=== PATIENT | female | born 1955 | race Caucasian/White ===

== ENCOUNTER 2023-02-15 09:46 | Outpatient (OUT) | payer OTHER, SELFPAY ==
--- NOTE | 2023-02-15 10:04 | XR_ITS ---
The [address] [address] Patient Name: LILI VERA MRN: [id number] date: 1955 Sex: F Assigned Patient Location: [facility] Current Patient Location: [facility] Accession/Order Number: [id number] Exam Date: 02/15/2023 10:00 Report Date: 02/15/2023 11:25 At the request of: ABDIRAHMAN NAVA Procedure: XR DEXA axial skeleton DEXA bone density study CLINICAL: 67 years Female. Evaluate bone mineral density. The bone density study was assessed by dual-energy x-ray absorptiometry. Areas examined in AP projection. The test results are expressed in T-Score, which is used for diagnosis for osteoporosis, and reflects the standard deviations from the mean peak bone mineral density in young adults. Additional information regarding the Z-Score reflects the standard deviations from the mean peak bone mineral density for age- and gender-matched subjects. Lumbar Spine (L1-L4): BMD (gm/cm2): 1.578 T-Score: 3.3 Left Hip (total): BMD (gm/cm2): 0.853 T-Score: -1.2 Left Hip (Neck): BMD (gm/cm2): 0.789 T-Score: -1.8 Right Hip (Total): BMD (gm/cm2): 0.831 T-Score: -1.4 Right Hip (Neck): BMD (gm/cm2): 0.741 T-Score: -2.1 XR/XR DEXA axial skeleton IMPRESSION: 1. Bone mineral density by WHO criteria: Osteopenia. Fracture risk increased. REFERENCE: In postmenopausal women and males 50 or over, comparison of the measured bone mineral density with the average value in young normal subjects (the T-Score) has been found to be useful in assessing fracture risk. Fracture risk approximately doubles for each 1.0 standard deviation (SD) that the individuals hip or spine bone mineral density is below the average value of young normal subjects. The World Health Organization (WHO) has provided the following definitions: 1. Normal: T-Score within one standard deviation of young adult mean value (T-Score at or above -1.0). 2. Osteopenia (low bone mass): T-Score more than one standard deviation below the young adult mean but less than 2.5 standard deviations below the young adult mean (T-Score between -1.0 and -2.5). 3. Osteoporosis: T-Score at or more than 2.5 standard deviations below the young adult mean (T-Score at or less than -2.5). 4. Severe Osteoporosis (established osteoporosis): T-Score more than 2.5 standard deviations below young adult and one or more fragility fracture (T-Score less than -2.5 plus fragility fractures). Electronically authenticated by: ANUPAM IBRAHIM Date: 02/15/2023 11:25
== END 2023-02-15 09:47 | disposition home or self-care (01) ==
LOC: MAMMO 09:47
PROVIDERS: PCP Family Medicine; Visit Provider Family Medicine
DX: Z13.820 Encounter for screening for osteoporosis (principal); Z90.722 Acquired absence of ovaries, bilateral; N95.9 Unspecified menopausal and perimenopausal disorder; Z90.710 Acquired absence of both cervix and uterus; M85.80 Other specified disorders of bone density and structure, unspecified site
CPT/HCPCS: 77080

== ENCOUNTER 2023-02-22 10:14 | Outpatient (OUT) | payer MEDICARE, SELFPAY ==
--- NOTE | 2023-02-22 10:19 | MM_ITS ---
Patient: LILI VERA Exam Date: 02/22/2023 : 1955 Gender:F Ordering : DR ABDIRAHMAN NAVA . Admission #: [id number] Family : Order #: [id number] CLICK HERE TO VIEW EXAM RADIOLOGY REPORT PROCEDURE: MM TOMOSYNTHESIS SCREENING BI COMPARISON: MG MAMM SCREEN 3D VICKEY CAD, 02/14/2022. MG MAMM SCREEN 3D [place]ICKEY CAD, 01/26/2021. MG MAMM SCREEN VICKEY W CAD, 01/21/2020. MG MAMM VICKEY SCRN W CAD DIG, 09/03/2013. INDICATIONS: Screening mammogram Z12.31 Calculator Name NCI Breast Cancer Risk Assessment Tool 5 Year Breast Cancer Risk 2.90% Lifetime Breast Cancer Risk 10.30% Personal Breast Cancer No Personal Ovarian Cancer No Treatments None Family Cancers Mother with breast cancer at age 71; Sister with pancreas cancer at age 66; Father with pancreas cancer at age 59. LOCATION: [facility] BREAST COMPOSITION: Heterogeneously dense,which may obscure small masses. FINDINGS: DIAGNOSTIC CATEGORY 1--NEGATIVE. RIGHT BREAST: No significant suspicious finding. No significant change has occurred. LEFT BREAST: No significant suspicious finding. No significant change has occurred. RECOMMENDATIONS: ROUTINE MAMMOGRAM AND CLINICAL EVALUATION IN 12 MONTHS. PLEASE NOTE: A NORMAL MAMMOGRAM DOES NOT EXCLUDE THE POSSIBILITY OF BREAST CANCER. A CLINICALLY SUSPICIOUS PALPABLE LUMP SHOULD BE BIOPSIED. Dictated by: Kennedy Valera M.D. on 02/22/2023 at 15:59 Approved by: Kennedy Valera M.D. on 02/22/2023 at 16:11
== END 2023-02-22 10:15 | disposition home or self-care (01) ==
LOC: MAMMO 10:15
PROVIDERS: PCP Family Medicine; Visit Provider Family Medicine
DX: Z12.31 Encounter for screening mammogram for malignant neoplasm of breast (principal); Z80.3 Family history of malignant neoplasm of breast; Z80.0 Family history of malignant neoplasm of digestive organs
CPT/HCPCS: 77063; 77067

== ENCOUNTER 2023-11-23 09:17 | Outpatient (OUT) | payer MEDICARE, SELFPAY ==
--- NOTE | 2023-11-23 09:20 | MM_ITS ---
Patient Name: LILI VERA MR#: [id number] : 1955 Exam Date: 11/23/2023 Ordering Doctor: DR ABDIRAHMAN NAVA . RADIOLOGY REPORT PROCEDURE: MM TOMOSYNTHESIS DIAGNOSTIC BI, 11/23/2023, 09:28 US BREAST LT LIMITED, 11/23/2023, 09:49 COMPARISON: MG MAMM SCREEN 3D VICKEY CAD, 02/14/2022. MM TOMOSYNTHESIS SCREENING BI, 02/22/2023. INDICATIONS: Mass Of Upper Outer Quadrant Of Left Breast Calculator Name NCI Breast Cancer Risk Assessment Tool 5 Year Breast Cancer Risk 3.00% Lifetime Breast Cancer Risk 9.90% Personal Breast Cancer No Personal Ovarian Cancer No Treatments None Family Cancers Mother with breast cancer at age 71; Sister with pancreas cancer at age 66; Father with pancreas cancer at age 59; Sister with bladder cancer at age 62; Sister with pancreas cancer at age ~65; Brother with pancreas cancer at age 69. LOCATION: The [facility] BREAST COMPOSITION: The breasts are heterogeneously dense,which may obscure small masses. FINDINGS: DIAGNOSTIC CATEGORY 2--BENIGN FINDING. NO CHANGE FROM COMPARISON. The breasts are stable in size and overall fibroglandular configuration. Scattered benign-appearing calcifications are present. Scattered benign-appearing lymph nodes are present. RIGHT BREAST: No significant suspicious finding. LEFT BREAST: No significant suspicious finding. [place] marker indicates a palpable mass upper-outer quadrant, mid posterior breast. No mammographic or ultrasound is demonstrated in this region. Further evaluation should be based on clinical and physical exam RECOMMENDATIONS: ROUTINE MAMMOGRAM AND CLINICAL EVALUATION IN 12 MONTHS. PLEASE NOTE: A NORMAL MAMMOGRAM DOES NOT EXCLUDE THE POSSIBILITY OF BREAST CANCER. A CLINICALLY SUSPICIOUS PALPABLE LUMP SHOULD BE BIOPSIED. Dictated by: Rosendo Middleton MD on 11/23/2023 at 10:51 Approved by: Rosendo Middleton MD on 11/23/2023 at 10:54
--- NOTE | 2023-11-23 09:23 | US_ITS ---
Patient Name: LILI VERA MR#: [id number] : 1955 Exam Date: 11/23/2023 Ordering Doctor: DR ABDIRAHMAN NAVA . RADIOLOGY REPORT PROCEDURE: MM TOMOSYNTHESIS DIAGNOSTIC BI, 11/23/2023, 09:28 US BREAST LT LIMITED, 11/23/2023, 09:49 COMPARISON: MG MAMM SCREEN 3D VICKEY CAD, 02/14/2022. MM TOMOSYNTHESIS SCREENING BI, 02/22/2023. INDICATIONS: Mass Of Upper Outer Quadrant Of Left Breast Calculator Name NCI Breast Cancer Risk Assessment Tool 5 Year Breast Cancer Risk 3.00% Lifetime Breast Cancer Risk 9.90% Personal Breast Cancer No Personal Ovarian Cancer No Treatments None Family Cancers Mother with breast cancer at age 71; Sister with pancreas cancer at age 66; Father with pancreas cancer at age 59; Sister with bladder cancer at age 62; Sister with pancreas cancer at age ~65; Brother with pancreas cancer at age 69. LOCATION: The [facility] BREAST COMPOSITION: The breasts are heterogeneously dense,which may obscure small masses. FINDINGS: DIAGNOSTIC CATEGORY 2--BENIGN FINDING. NO CHANGE FROM COMPARISON. The breasts are stable in size and overall fibroglandular configuration. Scattered benign-appearing calcifications are present. Scattered benign-appearing lymph nodes are present. RIGHT BREAST: No significant suspicious finding. LEFT BREAST: No significant suspicious finding. [place] marker indicates a palpable mass upper-outer quadrant, mid posterior breast. No mammographic or ultrasound is demonstrated in this region. Further evaluation should be based on clinical and physical exam RECOMMENDATIONS: ROUTINE MAMMOGRAM AND CLINICAL EVALUATION IN 12 MONTHS. PLEASE NOTE: A NORMAL MAMMOGRAM DOES NOT EXCLUDE THE POSSIBILITY OF BREAST CANCER. A CLINICALLY SUSPICIOUS PALPABLE LUMP SHOULD BE BIOPSIED. Dictated by: Rosendo Middleton MD on 11/23/2023 at 10:51 Approved by: Rosendo Middleton MD on 11/23/2023 at 10:54
== END 2023-11-23 09:18 | disposition home or self-care (01) ==
LOC: MAMMO 09:17
PROVIDERS: PCP Family Medicine; Visit Provider Family Medicine
DX: N63.21 Unspecified lump in the left breast, upper outer quadrant (principal); Z80.3 Family history of malignant neoplasm of breast; Z80.52 Family history of malignant neoplasm of bladder; Z80.8 Family history of malignant neoplasm of other organs or systems
CPT/HCPCS: 76642; 77066; G0279

== ENCOUNTER 2024-04-15 13:46 | Outpatient (OUT) | payer MEDICARE, SELFPAY ==
--- NOTE | 2024-04-15 | ECG_ITS ---
The 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
--- OUTSIDE RECORDS SUMMARY | 2024-04-15 13:56 | XMS_ITS | CCD ---
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 Name Role Phone ELIJAH ., DR GARY Primary Care Unavailable HEMEYER ., DR GARY Admitting Unavailable HEMEYER ., DR GARY Attending Unavailable HEMEYER ., DR GARY Consulting Unavailable HEMEYER ., DR GARY Admitting Unavailable HEMEYER ., DR GARY Attending Unavailable HEMEYER ., DR GARY Consulting Unavailable HEMEYER ., DR GARY Primary Care Unavailable ZIEBER, DR KENNEDY Mcginnis Consulting Unavailable Unavailable Primary Care Provider UnavailAMIE Mae Attending Unavailable HEMEYER, EDTRISHA J Attending Unavailable HEMEYER, EDWARD J Attending Unavailable HEMEYER, EDWARD J Attending Unavailable HEMEYER, EDWARD J Referring Unavailable HEMEYER, EDWARD J Attending Unavailable HEMEYER, EDWARD J Attending Unavailable HEMEYER, EDWARD J Attending Unavailable HEMEYER, EDWARD J Attending Unavailable Allergies Allergy Classification Reported Allergen(s) Allergy Type Date of Onset Reaction(s) Facility (1 source) ALLERGIES NOT ON FILE; Translations: [ALLERGIES NOT ON FILE] Propensity to adverse reactions (disorder) [facility] Problems Active Problems Problem Classification Problem Date Documented Date Episodic/Chronic Disorders of lipid metabolism (1 source) Pure hypercholesterolemia, unspecified; Translations: [PURE HYPERCHOLESTEROLEMIA UNSPEC] Onset: 3 Chronic Other liver diseases (1 source) Abnormal levels of other serum enzymes; Translations: [ABNORMAL LEVELS OTHER SERUM ENZYMES] Onset: 3 Episodic Other screening for suspected conditions (not mental disorders or infectious disease) (6 sources) Encounter for screening for lipoid disorders; Translations: [Encounter for screening for diabetes mellitus] Onset: 2 Episodic Residual codes; unclassified (1 source) Family history of malignant neoplasm of pancreas; Translations: [Family history of malignant neoplasm of digestive organs] 11-04-2023 Episodic Past or Other Problems Problem Classification Problem Date Documented Da te Episodic/Chronic Residual codes; unclassified (1 source) Family history of malignant neoplasm of breast; Translations: [FAMILY HX MALIG NEOPLASM OF BREAST] Onset: 02-17-2022 Episodic Residual codes; unclassified (1 source) Family history of malignant neoplasm of other organs or systems; Translations: [FAM HX MALIG NEOPLASM OTH ORGN/SYS] Onset: 02-17-2022 Episodic Results Test Name Value Interpretation Reference Range Facility CT ABDOMEN W IV CONTRASTon 0 08-24-2023 CT ABDOMEN W IV CONTRAST CT of the abdomen with intravenous contrast medium History: Pancreatic carcinoma screening, positive family history Technical Factors: CT imaging of the abdomen were obtained and formatted as 5 mm contiguous axial images from the domes of the diaphragm to the pelvic brim. Sagittal and coronal reconstructions were also obtained. Oral contrast medium: Barium sulfate, 400 mL. Intravenous contrast medium: Isovue-300, 100 mL. Comparison: None. Findings: Lower chest: Lung bases are clear. Cardiac size normal. No pericardial effusion. No coronary artery calcification. Liver: Normal in size, shape, and attenuation. Bile Ducts: Trace intrahepatic ductal dilatation. No extrahepatic ductal dilatation. Gallbladder: Surgically absent. Pancreas: Normal without masses, cysts, ductal dilatation or calcification. Spleen: Normal in size without masses or calcifications. No splenules. Kidneys: Normal in size and enhancement. No hydronephrosis, masses, or stones. Adrenals: Normal. Small bowel: Normal in caliber. Appendix: Normal. Colon: Normal in caliber. Peritoneum: No ascites, free air, or fluid collections. Vessels: Aorta normal in course and caliber. Portal vein, splenic vein, superior mesenteric vein are patent. Lymph nodes: Retroperitoneal: No enlarged retroperitoneal lymph nodes. Mesenteric: No enlarged mesenteric lymph nodes. Ureters: Normal in course and caliber. No calcifications. Abdominal Wall: No hernia identified. No diastasis of rectus musculature. No edema or masses. Bones: No bone lesions. Diffuse disc space narrowing L3-4, and L4-5. No post operative changes. IMPRESSION: Trace intrahepatic ductal dilatation in postcholecystectomy patient. Negative pancreas. All CT scans at this facility use dose modulation, iterative reconstruction, and/or weight based dosing when appropriate to reduce radiation dose to as low as reasonably achievable. ELECTRONICALLY SIGNED BY: Mickey Saxena MD Normal Not Available LIPID PROFILEon 10-12-2022 CHOL-HDL RATIO NORM SEE BELOW Normal [facility] Comment on above: Result Comment: 3.3 - 4.4 LOW RISK 4.4 - 7.1 AVERAGE RISK 7.1 - 11.0 MODERATE RISK >11.0 HIGH RISK Performed By: #### C MP, LIPID #### [facility] [address] [address] [address] Bhargavi Vogel Cholesterol [Mass/Vol] 229 mg/dL Critically high <=200 [facility] Comment on above: Performed By: #### C MP, LIPID #### [facility] [address] [address] [address] Bhargavi Vogel Cholesterol in HDL [Mass/Vol] 101 mg/dL Critically high 40-60 [facility] Comment on above: Performed By: #### C MP, LIPID #### [facility] [address] [address] [address] Bhargavi Vogel Cholesterol in LDL [Mass/Vol] 112.4 mg/dL Normal [facility] Comment on above: Performed By: #### C MP, LIPID #### [facility] [address] [address] [address] Bhargavi Vogel Cholesterol.total /Cholesterol in HDL [Mass ratio] 2.3 {ratio} Normal [facility] Comment on above: Performed By: #### C MP, LIPID #### [facility] [address] [address] [address] Bhargavi Vogel HDL NORMAL > or = 60 mg/dl - LO W CARDIOVASCULAR RISK <40 mg/dl - HIGH CARDIOVASCULAR RISK Normal [facility] Comment on above: Performed By: #### C MP, LIPID #### [facility] [address] [address] [address] Bhargavi Vogel LDL CALC NORMAL SEE BELOW Normal [facility] Comment on above: Result Comment: <100 mg/dl OPTIMAL 100 - 129 mg/dl NEAR OR ABOVE OPTIMAL 130 - 159 mg/dl BORDERLINE HIGH 160 - 189 mg/dl HIGH >190 mg/dl VERY HIGH Performed By: #### C MP, LIPID #### [facility] [address] [address] [address] Bhargavi Vogel Triglyceride [Mass/Vol] 78 mg/dL Normal <=150 [facility] Comment on above: Performed By: #### C MP, LIPID #### [facility] [address] [address] [address] Bhargavi Vogel VLDL CALC 15.6 mg/dL Normal [facility] Comment on above: Performed By: #### C MP, LIPID #### [facility] [address] [address] [address] Bhargavi Vogel PROF 14(COMP METB)on 023 Albumin [Mass/Vol] 3.8 g/dL Normal 3.4-5.0 [facility] Comment on above: Performed By: #### C MP, LIPID #### [facility] [address] [place] [address] Dr. Bhargavi Vogel Albumin/Globulin [Mass ratio] 1.3 {ratio} Normal [facility] Comment on above: Performed By: #### C MP, LIPID #### [facility] [address] [place] [address] Dr. Bhargavi Vogel ALP [Catalytic activity/Vol] 33 U/L Critically low 46-116 [facility] Comment on above: Performed By: #### C MP, LIPID #### [facility] [address] [address] [address] Bhargavi Vogel ALT [Catalytic activity/Vol] 26 U/L Normal 14-59 [facility] Comment on above: Performed By: #### C MP, LIPID #### [facility] [address] [address] [address] Bhargavi Vogel Anion gap [Moles/Vol] 10.7 mmol/L Normal [facility] Comment on above: Performed By: #### C MP, LIPID #### [facility] [address] [address] [address] Bhargavi Vogel AST [Catalytic activity/Vol] 21 U/L Normal 15-37 [facility] Comment on above: Performed By: #### C MP, LIPID #### [facility] [address] [place] [address] Dr. Bhargavi Vogel Bilirubin [Mass/Vol] 0.6 mg/dL Normal 0.2-1.0 [facility] Comment on above: Performed By: #### C MP, LIPID #### [facility] [address] [address] [address] Bhargavi Vogel Calcium [Mass/Vol] 9.2 mg/dL Normal 8.5-10.1 [facility] Comment on above: Performed By: #### C MP, LIPID #### [facility] [address] [address] [address] Bhargavi Vogel Chloride [Moles/Vol] 106 mmol/L Normal 98-107 [facility] Comment on above: Performed By: #### C MP, LIPID #### [facility] [address] [address] [address] Bhargavi Vogel CO2 [Moles/Vol] 28.6 mmol/L Normal 21.0-32.0 [facility] Comment on above: Performed By: #### C MP, LIPID #### [facility] [address] [address] [address] Bhargavi Vogel Creatinine [Mass/Vol] 0.75 mg/dL Normal 0.55-1.02 [facility] Comment on above: Performed By: #### C MP, LIPID #### [facility] [address] [address] [address] Bhargavi Vogel EGFR-AF CAMEROONIAN >60 Normal >=60 [facility] Comment on above: Performed By: #### C MP, LIPID #### [facility] [address] [address] [address] Bhargavi Vogel EGFR-NON AF CAMEROONIAN >60 Normal >=60 [facility] Comment on above: Performed By: #### C MP, LIPID #### [facility] [address] [address] [address] Bhargavi Vogel Globulin (S) [Mass/Vol] 3.0 g/dL Normal [facility] Comment on above: Performed By: #### C MP, LIPID #### [facility] [address] [address] [address] Bhargavi Vogel Glucose [Mass/Vol] 101 mg/dL Normal 74-106 [facility] Comment on above: Performed By: #### C MP, LIPID #### [facility] [address] [address] [address] Bhargavi Vogel Potassium [Moles/Vol] 4.3 mmol/L Normal 3.5-5.1 [facility] Comment on above: Performed By: #### C MP, LIPID #### [facility] [address] [address] [address] Bhargavi Vogel Protein [Mass/Vol] 6.8 g/dL Normal 6.4-8.2 [facility] Comment on above: Performed By: #### C MP, LIPID #### [facility] [address] [address] [address] Bhargavi Vogel Sodium [Moles/Vol] 141 mmol/L Normal 136-145 [facility] Comment on above: Performed By: #### C MP, LIPID #### [facility] [address] [address] [address] Bhargavi Vogel Urea nitrogen [Mass/Vol] 15.0 mg/dL Normal 7.0-18.0 [facility] Comment on above: Performed By: #### C MP, LIPID #### [facility] [address] [address] [address] Bhargavi Vogel Urea nitrogen/Creatini ne [Mass ratio] 20.0 mg/mg Normal [facility] Comment on above: Performed By: #### C MP, LIPID #### [facility] [address] [address] [address] Bhargavi Vogel MG MAMM SCREEN 3D VICKEY CADon 02-14-2022 MG MAMM SCREEN 3D VICKEY CAD Patient: LILI VERA Exam Date: 02/14/2022 : 1955 Gender:F Ordering : DR ABDIRAHMAN NAVA . Admission #: [id number] Family : Order #: [id number] CLICK HERE TO VIEW EXAM RADIOLOGY REPORT PROCEDURE: MAMMOGRAM SCREENING 3D BILATERAL CAD COMPARISON: MG MAMM SCREEN 3D VICKEY CAD, 01/26/2021. MG MAMM SCREEN VICKEY W CAD, 01/21/2020. INDICATIONS: Screening mammography Calculator Name NCI Breast Cancer Risk Assessment Tool 5 Year Breast Cancer Risk 2.90% Lifetime Breast Cancer Risk 10.70% Personal Breast Cancer No Personal Ovarian Cancer No Treatments None Family Cancers Mother with breast cancer at age 71; Sister with pancreas cancer at age 66; Father with pancreas cancer at age 59. LOCATION: [facility] BREAST COMPOSITION: Heterogeneously dense,which may obscure small masses. FINDINGS: DIAGNOSTIC CATEGORY 1--NEGATIVE. RIGHT BREAST: No significant suspicious finding. No significant change has occurred. LEFT BREAST: No significant suspicious finding. No significant change has occurred. RECOMMENDATIONS: ROUTINE MAMMOGRAM AND CLINICAL EVALUATION IN 12 MONTHS. PLEASE NOTE: A NORMAL MAMMOGRAM DOES NOT EXCLUDE THE POSSIBILITY OF BREAST CANCER. A CLINICALLY SUSPICIOUS PALPABLE LUMP SHOULD BE BIOPSIED. Dictated by: Kennedy Valera M.D. on 02/14/2022 at 16:01 Approved by: Kennedy Valera M.D. on 02/14/2022 at 16:06 Normal [facility] Encounters Encounter Date Encounter Type Care Provider Facility Start: 03-13-2024 End: 03-13-2024 ambulatory ABDIRAHMAN NAVA Not Available Start: 02-26-2024 End: 02-26-2024 ambulatory ABDIRAHMAN NAVA Not Available Start: 12-24-2023 End: 12-24-2023 ambulatory ABDIRAHMAN NAVA Not Available Start: 11-13-2023 End: 11-13-2023 ambulatory ABDIRAHMAN NAVA Not Available Start: 11-02-2023 End: 11-02-2023 Office outpatient new 45 minutes Amie Archer PA-C Work Phone: [facility] Comment on above: Family history of pa ncreatic cancer (Primary Dx) Start: 11-02-2023 End: 11-02-2023 ambulatory AMIE Cooper [facility] Start: 08-24-2023 End: 08-24-2023 ambulatory ABDIRAHMAN NAVA Not Available Start: 08-13-2023 End: 08-13-2023 ambulatory ABDIRAHMAN NAVA Not Available Start: 08-09-2023 End: 08-09-2023 ambulatory ABDIRAHMAN NAVA Not Available Start: 08-02-2023 End: 08-02-2023 ambulatory ABDIRAHMAN NAVA Not Available Start: 11-02-2022 Encounter for genera l adult medical examination without abnormal findings DR ABDIRAHMAN NAVA . [facility] Start: 10-12-2022 End: 10-13-[address] ABDIRAHMAN NAVA . Facility:[facility] Start: 10-12-2022 End: 10-13-2022 Encounter for general adult medical examination without abnormal findings DR ABDIRAHMAN NAVA . Facility:[facility] Start: 02-14-2022 End: 02-15-[address] ABDIRAHMAN NAVA . Facility:[facility] Procedures Date Procedure Procedure Detail Performing Clinician Start: 02-14-2022 Mammography Amie haro PA-C Work Phone: Plan of Treatment Date Care Activity Detail Author Start: 03-23-2024 Influenza vaccination Influenza Vaccine (Season Ended) [facility] Start: 03-23-2023 COVID-19 Vaccine ( season) COVID-19 Vaccine ( season) [facility] Start: 02-14-2023 Screening for malignant neoplasm of breast Mammogram [facility] Start: 2021 Pneumococcal Vaccine: 65+ Years (1 of 1 - PCV) Pneumococcal Vaccine: 65+ Years (1 of 1 - PCV) [facility] Start: 2006 Zoster Vaccines (1 of 2) Zoster Vaccines (1 of 2) [facility] Start: 1978 DTaP/Tdap/Td Vaccines (1 - Tdap) DTaP/Tdap/Td Vaccines (1 - Tdap) [facility] Start: 1974 Hepatitis C screening Hepatitis C Screening [facility] Start: 1955 Lipid panel Lipid Panel [facility] Start: 1955 Medicare Annual Wellness Visit Medicare Annual Wellness Visit (AWV) [facility] Start: 1955 Screening for malignant neoplasm of colon [facility] Start: 1955 Screening for osteoporosis Bone Density Scan [facility] Payers Date Payer Category Payer Unknown AARP AARP [id number] 2023-Present [address] [place] [address] [id number] 2023 Medicare [id number] 2023 Unknown [id number] 2023 Medicare MEDICARE MEDICAR E PART A AND B [id number] 2023-Present [address] [place] [address] [id number] 2023 Medicare [id number] 1959 Unknown [id number] 1959 Unknown [id number] 1955 Unknown [id number] 1955 Unknown [id number] 1955 Unknown [id number] 1955 Unknown [id number] 1955 Unknown [id number] 1955 Unknown [id number] 1955 Unknown [id number] 1955 Unknown [id number] 1955 Unknown [id number] 1955 Unknown [id number] 1955 Unknown [id number] Social History Date Type Detail Facility Tobacco smoking stat [facility] Tobacco smoking consumption unknown [facility] Work Phone: Start: 1955 Sex assigned at Female [facility] Start: 10-30-2023 Gender identity Identifies as female gender (finding) [facility] Work Phone: Start: 10-30-2023 Sexual orientation Heterosexual (finding) [facility] Work Phone: Start: 10-23-2023 End: 11-02-2023 Exposure to SARS-CoV-2 (event) Not sure [facility] History of Present illness Narrative 11-02-2023 Amie Archer PA-C - 11/02/2023 2:00 PM EDT Note Date & Type Note Facility 11-02-2023 History of Present illness Narrative A virtual visit (audio and visual connection) between the patient (at the originating site) and the provider (at the distant site) was utilized to provide this telehealth service. Verbal consent was requested and obtained from the patient immediately prior to the telehealth visit. Subjective Ms. Vera is a 68-year-old female who is self-referred to discuss pancreatic cancer surveillance. Her father and three of her siblings have from pancreatic cancer. She recalls that one of her sisters underwent genetic testing and no mutations were found. She attributes her strong family history of pancreatic cancer to sprays used on their family [place]. She lost her brother, Michael, in August to pancreatic cancer. This loss sparked her interest in pancreatic cancer surveillance. She discussed surveillance with her primary care physician who ordered a CT A/P. The pancreas was normal. She denies a personal history of acute pancreatitis. She denies chronic abdominal pain, early satiety, poor appetite, unintentional weight loss or jaundice. She is not diabetic. She considers herself to be very healthy. Medical history: Anxiety. Surgical history: Total hysterectomy, cholecystectomy, umbilical hernia repair. Family history: Her father of pancreatic cancer at age 59; he lived 6 weeks after his diagnosis; did not tolerate chemotherapy. She had 8 siblings, 4 of which are still living. She has had 3 siblings from pancreatic cancer: brother (Michael) in August, sister (Fabiana Santillan) was diagnosed at age 71 and in 2022, sister (Teresa) was diagnosed at age 67, underwent a Whipple procedure and in 2016. Mother was diagnosed with breast cancer at age 65 but lived to the age of 92. Oldest brother from AIDS at age 51 in 1994. Social history: Former smoker, quit 25 years ago. Occasional alcohol use. No illicits. Lives in [place]. x 43 years. Email: [email or web address]. Objective There were no vitals taken for this visit. Physical Exam A physical exam was not conducted as this was a phone or virtual visit. The patient is in no acute distress. Assessment/Plan Ms. Vera is a 68-year-old female who is self-referred to discuss pancreatic cancer surveillance. PLAN: She has a strong family history of pancreatic cancer. Her family history qualifies her for our CAPS5 study and familial pancreatic cancer surveillance program. I have referred her to Dr. Mando Belle to enroll. We had a long discussion regarding surveillance options (MRI/MRCP, EUS, etc.). She does not believe she will ever be able to tolerate a MRI/MRCP due to significant claustrophobia. She also (understandably) expresses significant anxiety related to her family history and comments that she would feel more comfortable with a shorter surveillance interval (as compared to annually). I will let her know if I hear of any new surveillance tests developed or offered in the future. I did briefly discuss the Galleri test with her though likely cost-prohibitive. Finally, I did request her CT images for review. Amie Archer PA-C documented in this encounter [facility] Work Phone: Evaluation note Note Date & Type Note Facility Evaluation note Diagnosis Family history of pancreatic cancer- Primary Family history of malignant neoplasm of gastrointestinal tract documented in this encounter [facility] Work Phone: Summary Purpose Family History No Family History Records FoundNo Family History Records FoundNo Family History Records Found Advance Directives No Advanced Directives Records FoundNo Advanced Directives Records FoundNo Advanced Directives Records Found Additional Source Comments INFORMATION SOURCE (unrecogn ized section and content) DATE CREATED AUTHOR 11/03/2022 [facility] DATE CREATED AUTHOR AUTHOR'S ORGANIZ ATION 11/04/2023 [facility] DATE CREATED AUTHOR AUTHOR'S ORGANIZ ATION 03/15/2024 [facility] FOR RECORDS PERTAINING TO PATIENTS WHO ARE OR HAVE BEEN ENROLLED IN A CHEMICAL DEPENDENCY/SUBSTANCEABUSE PROGRAM, SOME INFORMATION MAY BE OMITTED. This clinical summary was aggregated from multiple sources. Caution should be exercised in using it in the provision of clinical care. This summary normalizes information from multiple sources, and as a consequence, information in this document may materially change the coding, format and clinical context of patient data. In addition, data may be omitted in some cases. CLINICAL DECISIONS SHOULD BE BASED ON THE PRIMARY CLINICAL RECORDS. [employer] provides no warranty or guarantee of the accuracy or completeness of information in this document.
== END 2024-04-15 13:47 | disposition home or self-care (01) ==
PROVIDERS: PCP Family Medicine; Visit Provider Family Medicine
DX: Z87.898 Personal history of other specified conditions (principal)
CPT/HCPCS: 93005

== ENCOUNTER 2024-08-19 07:44 | Outpatient (OUT) | payer MEDICARE, SELFPAY ==
--- OUTSIDE RECORDS SUMMARY | 2024-08-19 07:48 | XMS_ITS | CCD ---
Author Organization [facility] Care Team Providers Care Dust Sampler Name Role Phone ELIJAH ., DR GARY Primary Care Unavailable HEMEYER ., DR GARY Admitting Unavailable HEMEYER ., DR GARY Attending Unavailable HEMEYER ., DR GARY Consulting Unavailable HEMEYER ., DR GARY Admitting Unavailable HEMEYER ., DR GARY Attending Unavailable HEMEYER ., DR GARY Consulting Unavailable HEMEYER ., DR GARY Primary Care Unavailable ZIEBER, DR KENNEDY Mcginnis Consulting Unavailable Unavailable Primary Care Provider UnavailLIN Mae Attending Unavailable Jack Nava MD Primary Care Provider [phone] Jack Nava MD Primary Care Provider Jack Nava MD Primary Care Provider JACK NAVA Attending Unavailable JACK NAVA Referring Unavailable JACK NAVA Attending Unavailable JACK NAVA Attending Unavailable JACK NAVA Attending Unavailable JACK NAVA Attending Unavailable JACK NAVA Attending Unavailable Allergies Allergy Classification Reported Allergen(s) Allergy Type Date of Onset Reaction(s) Facility (1 source) ALLERGIES NOT ON FILE; Translations: [ALLERGIES NOT ON FILE] Propensity to adverse reactions (disorder) [facility] (12 sources) Acetaminophen Drug Allergy 3 [facility] (12 sources) Codeine Drug Allergy 3 [facility] (12 sources) Ketoprofen Drug Allergy 3 [facility] Medications Current Medications Medication Drug Class(es) Dates Sig (Normalized) Sig (Original) ALPRAZolam 0.25 mg oral tablet (13 sources) Benzodiazepine Start: 02-26-2024 End: 02-26-2024 take 1 tablet by mouth three times daily as needed for anxiety ALPRAZolam (Xanax) 0.25 MG tablet Indications: Generalized anxiety disorder (CMS/HCC) Take 1 tablet (0.25 mg) by mouth 3 (three) times a day as needed for anxiety for up to 10 days 30 tablet 02/26/2024 Active colestipol hydrochloride 1000 mg oral tablet (17 sources) Bile Acid Sequestrant Start: 02-05-2024 End: 11-12-2024 take 1-2 tablets by mouth three times daily as needed for diarrhea colestipol (Colestid) 1 g tablet Indications: Irritable bowel syndrome with both constipation and diarrhea Take 1-2 tablets (1-2 g) by mouth 3 (three) times a day as needed (diarrhea) 100 tablet 1 08/14/2024 11/12/2024 Active cyclobenzaprine hydrochloride 5 mg oral tablet (4 sources) Muscle Relaxant Start: 03-13-2024 End: 03-23-2024 take 1 tablet by mouth in the morning, then take 1 tablet by mouth in the evening, then take 1 tablet by mouth at bedtime cyclobenzaprine (Flexeril) 5 MG tablet Indications: Lumbar strain, initial encounter Take 1 tablet (5 mg) by mouth in the morning and 1 tablet (5 mg) in the evening and 1 tablet (5 mg) before bedtime. Do all this for 10 days. 30 tablet 03/13/2024 03/23/2024 Active estradiol 1 mg oral tablet (16 sources) Estrogen Start: 02-05-2024 End: 02-10-2025 take 1 tablet by mouth once daily estradiol (Estrace) 1 MG tablet Indications: Perimenopausal disorder Take 1 tablet (1 mg) by mouth Daily 90 tablet 1 08/14/2024 02/10/2025 Active mometasone furoate 0.001 mg/mg topical ointment (2 sources) Corticosteroid Start: 08-14-2024 End: 11-12-2024 mometasone (Elocon) 0.1 % ointment Indications: Perioral dermatitis Apply topically Daily As needed for inflamed lips 15 g 2 08/14/2024 11/12/2024 Active nabumetone 750 mg oral tablet (4 sources) Nonsteroidal Anti-inflammatory Drug Start: 03-13-2024 End: 03-23-2024 take 1 tablet by mouth in the morning nabumetone (Relafen) 750 MG tablet Indications: Lumbar strain, initial encounter Take 1 tablet (750 mg) by mouth in the morning and 1 tablet (750 mg) before bedtime. Do all this for 10 days. 20 tablet 03/13/2024 03/23/2024 Active omeprazole 20 mg delayed release oral capsule (16 sources) Proton Pump Inhibitor Start: 08-02-2023 End: 08-14-2025 take 1 capsule by mouth before mealtime omeprazole (PriLOSEC) [address] capsule Indications: Gastroesophageal reflux disease without esophagitis Take 1 capsule (20 mg) by mouth in the morning. Take before meals. Do not crush or chew.. 90 capsule 3 08/14/2024 08/14/2025 Active Problems Active Problems Problem Classification Problem Date Documented Date Episodic/Chronic Anxiety disorders (16 sources) Generalized anxiety disorder; Translations: [Generalized anxiety disorder] Onset: 02-16-2002-15-2023 Chronic Disorders of lipid metabolism (1 source) Pure hypercholesterolemia, unspecified; Translations: [PURE HYPERCHOLESTEROLEMIA UNSPEC] Onset: 11-03-19 Chronic Esophageal disorders (18 sources) Gastroesophageal reflux disease without esophagitis; Translations: [Gastro-esophageal reflux disease without esophagitis] Onset: 08-02-1904-30-2024 Chronic Menopausal disorders (16 sources) Perimenopausal disorder; Translations: [Unspecified menopausal and perimenopausal disorder] Onset: 02-16-2002-15-2023 Chronic Nonspecific chest pain (2 sources) Chest pain; Translations: [Chest pain, unspecified] 04-30-2024 Episodic Other gastrointestinal disorders (17 sources) Irritable bowel syndrome; Translations: [Irritable bowel syndrome without diarrhea] Onset: 02-16-20 23 02-15-2023 Chronic Other inflammatory condition of skin (2 sources) Perioral dermatitis; Translations: [Perioral dermatitis] 08-14-2024 Chronic Other liver diseases (1 source) Abnormal levels of other serum enzymes; Translations: [ABNORMAL LEVELS OTHER SERUM ENZYMES] Onset: 11-03-19 Episodic Other screening for suspected conditions (not mental disorders or infectious disease) (10 sources) Encounter for screening for lipoid disorders; Translations: [Encounter for screening for diabetes mellitus] Onset: 02-15-20 Episodic Residual codes; unclassified (14 sources) At risk of malignancy; Translations: [Other specified personal risk factors, not elsewhere classified] Onset: 08-02-1908-02-2023 Episodic Spondylosis; intervertebral disc disorders; other back problems (12 sources) Degeneration of cervical intervertebral disc; Translations: [Other cervical disc degeneration, unspecified cervical region] Onset: 02-16-2002-15-2023 Chronic Past or Other Problems Problem Classification Problem Date Documented Da te Episodic/Chronic Abdominal pain (2 sources) Flank pain; Translations: [Unspecified abdominal pain] 03-13-2024 Episodic Residual codes; unclassified (1 source) Family history of malignant neoplasm of breast; Translations: [FAMILY HX MALIG NEOPLASM OF BREAST] Onset: 02-17-2022 Episodic Residual codes; unclassified (1 source) Family history of malignant neoplasm of other organs or systems; Translations: [FAM HX MALIG NEOPLASM OTH ORGN/SYS] Onset: 02-17-2022 Episodic Residual codes; unclassified (13 sources) Family history of malignant neoplasm of pancreas; Translations: [Family history of malignant neoplasm of digestive organs] Onset: 08-02-2023 11-04-2023 Episodic Residual codes; unclassified (14 sources) Acquired absence of cervix and uterus; Translations: [Acquired absence of both cervix and uterus] Onset: 02-15-2023 02-15-2023 Episodic Residual codes; unclassified (14 sources) Bilateral acquired absence of ovary; Translations: [Acquired absence of ovaries, bilateral] Onset: 02-15-2023 02-15-2023 Episodic Residual codes; unclassified (4 sources) Body mass index 20-24 - normal; Translations: [Body mass index (BMI) 22.0-22.9, adult] 02-20-2024 Episodic Sprains and strains (2 sources) Low back strain; Translations: [Strain of muscle, fascia and tendon of lower back, initial encounter] 03-13-2024 Episodic Results Test Name Value Interpretation Reference Range Facility Urinalysis macro (dipstick) panel (U)on 03-13-2024 Bilirubin, UA Negative Negative - 4(70) +++ mg/dL [facility] Blood, UA Negative Negative - 50 Se/mcL [facility] Clarity, UA Clear [facility] Color, UA Colorless [facility] Glucose, UA Negative Negative - 2000(110) ++++ mg/dL [facility] Interpretation and review of laboratory results Normal [facility] Ketones, UA Negative Negative - 160(16) ++++ mg/dL [facility] Leukocytes, UA Negative Negative - 500+++ Tate/mcL [facility] Nitrite, UA Negative Negative - Positive [facility] pH, UA 6.0 5 - 9 [facility] Protein, UA Negative Negative - 2000(20) ++++ mg/dL [facility] Spec Grav, UA 1.015 1 - 1.03 [facility] Urobilinogen, UA 0.2 0.2 - 12 mg/dL [facility] CT ABDOMEN W IV CONTRASTon 0 08-24-2023 [...] 10-12-2022 CHOL-HDL RATIO NORM SEE BELOW Normal [facility] Comment on above: Result Comment: 3.3 - 4.4 LOW RISK 4.4 - 7.1 AVERAGE RISK 7.1 - 11.0 MODERATE RISK >11.0 HIGH RISK Performed By: #### C MP, LIPID #### [facility] [address] [address] [address] Bhargavi Vogel Cholesterol [Mass/Vol] 229 mg/dL Critically high <=200 [facility] Comment on above: Performed By: #### C MP, LIPID #### [facility] [address] [address] [address] Bhargavi Vogel Cholesterol in HDL [Mass/Vol] 101 mg/dL Critically high 40-60 [facility] Comment on above: Performed By: #### C MP, LIPID #### [facility] [address] [address] [address] Bhargavi Vogel Cholesterol in LDL [Mass/Vol] 112.4 mg/dL Normal [facility] Comment on above: Performed By: #### C MP, LIPID #### [facility] [address] [address] [address] Bhargavi Vogel Cholesterol.total/C holesterol in HDL [Mass ratio] 2.3 {ratio} Normal [facility] Comment on above: Performed By: #### C MP, LIPID #### [facility] [address] [address] [address] Bhargavi Vogel HDL NORMAL > or = 60 mg/dl - LO W CARDIOVASCULAR RISK <40 mg/dl - HIGH CARDIOVASCULAR RISK Normal [facility] Comment on above: Performed By: #### C MP, LIPID #### [facility] [address] [address] [address] Bhargavi Vogel LDL CALC NORMAL SEE BELOW Normal [facility] Comment on above: Result Comment: <100 mg/dl OPTIMAL 100 - 129 mg/dl NEAR OR ABOVE OPTIMAL 130 - 159 mg/dl BORDERLINE HIGH 160 - 189 mg/dl HIGH >190 mg/dl VERY HIGH Performed By: #### C MP, LIPID #### [facility] [address] [address] [address] Bhargavi Vogel Triglyceride [Mass/Vol] 78 mg/dL Normal <=150 [facility] Comment on above: Performed By: #### C MP, LIPID #### [facility] [address] [address] [address] Bhargavi Vogel VLDL CALC 15.6 mg/dL Normal [facility] Comment on above: Performed By: #### C MP, LIPID #### [facility] [address] [address] [address] Bhargavi Vogel PROF 14(COMP METB)on 023 Albumin [Mass/Vol] 3.8 g/dL Normal 3.4-5.0 [facility] Comment on above: Performed By: #### C MP, LIPID #### [facility] [address] [place] [address] Dr. Bhargavi Vogel Albumin/Globulin [Mass ratio] 1.3 {ratio} Normal [facility] Comment on above: Performed By: #### C MP, LIPID #### [facility] [address] [place] [address] Dr. Bhargavi Vogel ALP [Catalytic activity/Vol] 33 U/L Critically low 46-116 [facility] Comment on above: Performed By: #### C MP, LIPID #### [facility] [address] [address] [address] Bhargavi Vogel ALT [Catalytic activity/Vol] 26 U/L Normal 14-59 [facility] Comment on above: Performed By: #### C MP, LIPID #### [facility] [address] [address] [address] Bhargavi Vogel Anion gap [Moles/Vol] 10.7 mmol/L Normal [facility] Comment on above: Performed By: #### C MP, LIPID #### [facility] [address] [address] [address] Bhargavi Vogel AST [Catalytic activity/Vol] 21 U/L Normal 15-37 [facility] Comment on above: Performed By: #### C MP, LIPID #### [facility] [address] [address] [address] Bhargavi Vogel Bilirubin [Mass/Vol] 0.6 mg/dL Normal 0.2-1.0 [facility] Comment on above: Performed By: #### C MP, LIPID #### [facility] [address] [place] [address] Dr. Bhargavi Vogel Calcium [Mass/Vol] 9.2 mg/dL Normal 8.5-10.1 [facility] Comment on above: Performed By: #### C MP, LIPID #### [facility] [address] [place] [address] Dr. Bhargavi Vogel Chloride [Moles/Vol] 106 mmol/L Normal 98-107 [facility] Comment on above: Performed By: #### C MP, LIPID #### [facility] [address] [place] [address] Dr. Bhargavi Vogel CO2 [Moles/Vol] 28.6 mmol/L Normal 21.0-32.0 [facility] Comment on above: Performed By: #### C MP, LIPID #### [facility] [address] [place] [address] Dr. Bhargavi Vogel Creatinine [Mass/Vol] 0.75 mg/dL Normal 0.55-1.02 [facility] Comment on above: Performed By: #### C MP, LIPID #### [facility] [address] [place] [address] Dr. Bhargavi Vogel EGFR-AF NORWEGIAN >60 Normal >=60 [facility] Comment on above: Performed By: #### C MP, LIPID #### [facility] [address] [place] [address] Dr. Bhargavi Vogel EGFR-NON AF NORWEGIAN >60 Normal >=60 [facility] Comment on above: Performed By: #### C MP, LIPID #### [facility] [address] [place] [address] Dr. Bhargavi Vogel Globulin (S) [Mass/Vol] 3.0 g/dL Normal [facility] Comment on above: Performed By: #### C MP, LIPID #### [facility] [address] [address] [address] Bhargavi Vogel Glucose [Mass/Vol] 101 mg/dL Normal 74-106 [facility] Comment on above: Performed By: #### C MP, LIPID #### [facility] [address] [address] [address] Bhargavi Vogel Potassium [Moles/Vol] 4.3 mmol/L Normal 3.5-5.1 [facility] Comment on above: Performed By: #### C MP, LIPID #### [facility] [address] [address] [address] Bhargavi Vogel Protein [Mass/Vol] 6.8 g/dL Normal 6.4-8.2 [facility] Comment on above: Performed By: #### C MP, LIPID #### [facility] [address] [place] [address] Dr. Bhargavi Vogel Sodium [Moles/Vol] 141 mmol/L Normal 136-145 [facility] Comment on above: Performed By: #### C MP, LIPID #### [facility] [address] [address] [address] Bhargavi Vogel Urea nitrogen [Mass/Vol] 15.0 mg/dL Normal 7.0-18.0 [facility] Comment on above: Performed By: #### C MP, LIPID #### [facility] [address] [address] [address] Bhargavi Vogel Urea nitrogen/Creatinine [Mass ratio] 20.0 mg/mg Normal [facility] Comment on above: Performed By: #### C MP, LIPID #### [facility] [address] [address] [address] Bhargavi Vogel MG MAMM SCREEN 3D VICKEY CADon 02-14-2022 MG MAMM SCREEN 3D VICKEY CAD Patient: LILI VERA Exam Date: 02/14/2022 : 1955 Gender:F Ordering : DR JACK NAVA . Admission #: [id number] Family : Order #: [id number] CLICK HERE TO VIEW EXAM RADIOLOGY REPORT [...] pancreas cancer at age 60. LOCATION: [facility] BREAST COMPOSITION: Heterogeneously dense,which may obscure small [...] M.D. on 02/14/2022 at 16:06 Normal [facility] Vital Signs Date Time Vital Sign Value Performing Clinician Faci lity 08-14-2024 10:19-0500 Body height 170.2 cm Jack Nava MD Work Phone: [facility] 08-14-2024 10:19-0500 Body mass index (BMI) [Ratio] 22.71 kg/m2 Jack Nava MD Work Phone: [facility] 08-14-2024 10:19-0500 Body weight 65.77 kg Jack Nava MD Work Phone: [facility] 04-16-2024 14:46-0400 Body height 170.2 cm Jack Nava MD Work Phone: [facility] 04-16-2024 14:46-0400 Body mass index (BMI) [Ratio] 22.71 kg/m2 Jack Nava MD Work Phone: [facility] 04-16-2024 14:46-0400 Body weight 65.77 kg Jack Nava MD Work Phone: [facility] 04-16-2024 14:46-0400 Heart rate 87 /min Jack Nava MD Work Phone: [facility] 04-16-2024 14:46-0400 SaO2% (BldA) [Mass fraction] 94 % Jack Nava MD Work Phone: [facility] 03-13-2024 14:46-0400 Body height 170.2 cm Jack Nava MD Work Phone: [facility] 03-13-2024 14:46-0400 Body mass index (BMI) [Ratio] 22.71 kg/m2 Jack Nava MD Work Phone: [facility] 03-13-2024 14:46-0400 Body weight 65.77 kg Jack Nava MD Work Phone: [facility] 02-26-2024 08:53-0400 Body height 170.2 cm Jack Nava MD Work Phone: [facility] 02-26-2024 08:53-0400 Body mass index (BMI) [Ratio] 22.71 kg/m2 Jack Nava MD Work Phone: [facility] 02-26-2024 08:53-0400 Body weight 65.77 kg Jack Nava MD Work Phone: [facility] Encounters Encounter Date Encounter Type Care Provider Facility Start: 08-14-2024 End: 08-14-2024 Bamboo flowsheet Jack Nava MD Work Phone: [facility] Start: 08-14-2024 End: 08-14-2024 Bamboo flowsheet Jack Nava MD Work Phone: [facility] Start: 08-14-2024 End: 08-14-2024 Office outpatient visit 25 minutes Jack Nava MD Work Phone: [facility] Comment on above: Generalized anxiety disorder (CMS/HCC) (Primary Dx); Gastroesophageal reflux disease without esophagitis; Irritable bowel syndrome with both constipation and diarrhea; Perimenopausal disorder; Screening, lipid; Screening for diabetes mellitus; Perioral dermatitis; At high risk for pancreatic cancer Start: 08-14-2024 End: 08-14-2024 ambulatory JACK NAVA Not Available Start: 06-25-2024 End: 06-26-2024 Refill Jack Nava MD Work Phone: [facility] Comment on above: Irritable bowel synd demetrice with both constipation and diarrhea Start: 04-16-2024 End: 04-16-2024 Office outpatient visit 15 minutes Jack Nava MD Work Phone: [facility] Comment on above: Chest pain, unspecif ied type (Primary Dx); Gastroesophageal reflux disease without esophagitis Start: 04-16-2024 End: 04-16-2024 ambulatory JACK NAVA Not Available Start: 04-16-2024 End: 04-16-2024 Bamboo flowsheet Jack Nava MD Work Phone: [facility] Start: 04-16-2024 End: 04-16-2024 Bamboo flowsshe Nava MD Work Phone: [facility] Start: 03-13-2024 End: 03-13-2024 Office outpatient visit 15 minutes Jack Nava MD Work Phone: [facility] Comment on above: Lumbar strain, initi al encounter (Primary Dx); Flank pain; BMI 22.0-22.9, adult Start: 03-13-2024 End: 03-13-2024 ambulatory JACK NAVA Not Available Start: 03-13-2024 End: 03-13-2024 Bamboo flowsheet Jack Nava MD Work Phone: [facility] Start: 03-13-2024 End: 03-13-2024 Bamboo flowsshe Nava MD Work Phone: [facility] Start: 02-26-2024 End: 02-26-2024 Office outpatient visit 25 minutes Jack Nava MD Work Phone: [facility] Comment on above: Generalized anxiety disorder (CMS/HCC) (Primary Dx); Gastroesophageal reflux disease without esophagitis; Irritable bowel syndrome with both constipation and diarrhea; Acquired absence of both cervix and uterus; Acquired absence of both ovaries; Perimenopausal disorder; BMI 22.0-22.9, adult Start: 02-26-2024 End: 02-26-2024 ambulatory JACK NAVA Not Available Start: 12-24-2023 End: 12-24-2023 ambulatory JACK NAVA Not Available Start: 11-13-2023 End: 11-13-2023 ambulatory JACK NAVA Not Available Start: 11-02-2023 End: 11-02-2023 Office outpatient new 45 minutes Lin Archer PA-C Work Phone: [facility] Comment on above: Family history of pa ncreatic cancer (Primary Dx) Start: 11-02-2023 End: 11-02-2023 ambulatory LIN ARCHER [facility] Start: 08-24-2023 End: 08-24-2023 ambulatory JACK NAVA Not Available Start: 11-02-2022 Encounter for genera l adult medical examination without abnormal findings DR JACK NAVA . [facility] Start: 10-12-2022 End: 10-13-[address] JACK NAVA . Facility:[facility] Start: 10-12-2022 End: 10-13-2022 Encounter for general adult medical examination without abnormal findings DR JACK NAVA . Facility:[facility] Start: 02-14-2022 End: 02-15-[address] JACK NAVA . Facility:[facility] Procedures Date Procedure Procedure Detail Performing Clinician Start: 03-13-2024 Urnls dip stick/tabl et rgnt non-auto w/o micrscp Jack Nava MD Work Phone: Start: 11-23-2023 Mammography Jack arita MD Work Phone: Start: 02-14-2022 Mammography Lin haro PA-C Work Phone: Plan of Treatment Date Care Activity Detail Author Start: 10-26-2025 Screening for malign ant neoplasm of colon [facility] Start: 12-23-2024 Medicare Annual Wellness (AWV) Medicare Annual Wellness (AWV) [facility] Start: 11-22-2024 Screening for malign ant neoplasm of breast Mammogram [facility] Start: 08-14-2024 End: 08-14-2025 Comprehensive metabolic 2000 panel - Serum or Plasma Comprehensive metabolic panel Lab Routine Screening for diabetes mellitus Expected: 08/14/2024 (Approximate), Expires: 08/14/2025 [facility] Work Phone: Comment on above: Expected: 08/14/2024 (Approximate), Expires: 08/14/2025 Start: 08-14-2024 End: 08-14-2025 Lipid 1996 panel - Serum or Plasma Lipid panel Lab Routine Screening, lipid Expected: 08/14/2024 (Approximate), Expires: 08/14/2025 [facility] Comment on above: Expected: 08/14/2024 (Approximate), Expires: 08/14/2025 Start: 08-14-2024 End: 08-14-2024 Patient encounter procedure 08/14/2024 10:30 AM EST Office Visit [facility] [address] [place] [address] Jack Nava MD [address] [facility] [address] [place] [address] (Fax) Generalized anxiety disorder (CMS/HCC); Gastroesophageal reflux disease without esophagitis; Irritable bowel syndrome with both constipation and diarrhea [facility] Comment on above: Generalized anxiety disorder (CMS/HCC); Gastroesophageal reflux disease without esophagitis; Irritable bowel syndrome with both constipation and diarrhea Start: 04-16-2024 End: 04-16-2024 Patient encounter procedure 04/16/2024 3:00 PM EDT Office Visit [facility] [address] [address] [place] [id number] Jack Nava MD [address] [place] [address] (Fax) Arrived [facility] Comment on above: Arrived Start: 03-23-2024 Influenza vaccination Influenz a Vaccine (Season Ended) [facility] Start: 03-13-2024 End: 03-13-2024 Patient encounter procedure 03/13/2024 3:00 PM EDT Office Visit [facility] [address] [address] [place] [id number] Jack Nava MD [address] [place] [address] (Fax) Arrived [facility] Comment on above: Arrived Start: 03-23-2023 COVID-19 Vaccine ( season) COVID-19 Vaccine ( season) [facility] Start: 02-14-2023 Screening for malign ant neoplasm of breast Mammogram [facility] Start: 2021 Pneumococcal Vaccine : 65+ Years (1 of 1 - PCV) Pneumococcal Vaccine: 65+ Years (1 of 1 - PCV) [facility] Start: 2006 Zoster Vaccines (1 o f 2) Zoster Vaccines (1 of 2) [facility] Start: 1978 DTaP/Tdap/Td Vaccine s (1 - Tdap) DTaP/Tdap/Td Vaccines (1 - Tdap) [facility] Start: 1974 [facility]: 1955 Lipid panel Lipid Panel [facility] Start: 1955 Medicare Annual Wellness Visit Medicare Annual Wellness Visit (AWV) [facility] Start: 1955 Screening for malign ant neoplasm of colon [facility] Start: 1955 Screening for osteoporosis Bone [facility] Payers Date Payer Category Payer Private Health Insurance MABLE lau [id number] 2023 Unknown [id number] 2023 Medicare [id number] 2023 Unknown [id number] 2023 Medicare [id number] 2023 Medicare [id number] 1959 Unknown [id number] 1959 Unknown [id number] 1956 Unknown [id number] 593 1956 Unknown [id number]. 593 1956 Unknown [id number]. 1245 1956 Unknown [id number]. 1259 1956 Unknown [id number]. 1259 1956 Unknown [id number]. 1259 1956 Unknown [id number]. 1259 1956 Unknown [id number]. 1259 1956 Unknown [id number]. 1259 1956 Unknown [id number]. 1259 Social History Date Type Detail Facility Tobacco smoking stat [facility] Tobacco smoking consumption unknown [facility] Work Phone: Start: 1955 Sex assigned at Female [facility] Start: 10-30-2023 Gender identity Identifies as female gender (finding) [facility] Work Phone: Start: 10-30-2023 Sexual orientation Heterosexual (finding) [facility] Work Phone: Start: 10-23-2023 End: 11-02-2023 Exposure to SARS-CoV-2 (event) Not sure [facility] Start: 02-26-2024 Tobacco smoking status ORIS Ex-smoker [facility] End: 05-18-1997 History of tobacco use Current smoker [facility] End: 05-18-1997 History of tobacco use Cigarette Smoker [facility] Start: 02-26-2024 Tobacco use and exposure Former smokeless tobacco user [facility] Start: 04-16-2024 End: 08-14-2024 Alcoholic beverage intake Current drinker of alcohol (finding) [facility] Start: 08-01-2023 End: 08-07-2024 History of Social function [facility] Start: 08-01-2023 End: 08-07-2024 Humiliation, Afraid, Rape, and Kick questionnaire [HARK] [facility] Within the last year , have you been afraid of your partner or ex-partner? No [facility] Are you now , , , , never or living with a partner? [facility] How often to you hav e a drink containing alcohol? 4 or more times a week [facility] How many standard dr inks containing alcohol do you have on a typical day? 3 or 4 [facility] How often do you hav e 6 or more drinks on 1 occasion? Never [facility] How hard is it for y ou to pay for the very basics like food, housing, medical care, and heating Not hard at all [facility] Do you feel stress - tense, restless, nervous, or anxious, or unable to sleep at night because your mind is troubled all the time - these days [OSQ] Only a little [facility] (I/We) worried wheth er (my/our) food would run out before (I/we) got money to buy more. Never true [facility] Start: 07-30-2023 Tobacco Comment Last smoked : > 10 years [facility] Start: 07-30-2023 Alcohol Comment Caffeine intake : 1-2 cups per day [facility] Start: 1955 Sex assigned at Not on file [facility] How often to you hav e a drink containing alcohol? 2-3 time sa week [facility] Clinical Notes 11-02-2023 to 08-14-2024 Jack Nava MD - 08/14/2024 10:30 AM Ajit Nava MD - 04/16/2024 3:00 PM Megan Nava MD - 03/13/2024 3:00 PM Megan Nava MD - 02/26/2024 9:00 AM EDT Note Date & Type Note Facility 08-14-2024 History of Present illness Narrative Images from the original note were not included. Patient ID: Lili Vera is a 68 y.o. female who presents for: Anxiety Patient is here for evaluation of anxiety. He/She has the following anxiety symptoms: none. Onset of symptoms was approximately several years ago. Symptoms have been stable since that time. He/She denies current suicidal and homicidal ideation. Family history significant for no psychiatric illness.Possible organic causes contributing are: none. Previous treatment includes medication Xanax. He/She complains of the following medication side effects: none. Female HRT: Symptoms include: none Severity: mild Feels better since starting HRT treatment: Yes Other Symptoms: none Date of Last Mammogram: 11/2023 GERD Paitent complains of heartburn. This has been associated with no other symptoms. He/She denies abdominal bloating, belching and eructation, difficulty swallowing, dysphagia, and hoarseness. Symptoms have been present for several years . He/She denies dysphagia. He/She has not lost weight. He/She denies melena, hematochezia, hematemesis, and coffee ground emesis. Refill: Pt has been on colestipol for several years for her diarrhea related to her IBS and has been happy with the medication. Pt has not side effects from medications and needs a refill today. Review of Systems She continues to have intermittent inflammation and scaling in the perioral region and sometimes onto her lips. Not cold sores. The medication I had previous who prescribed for her is ridiculously expensive. Objective Appearance: Well-groomed, in no acute distress Abnormal body movements: None Affect: Appropriate and appears to be full range Attention: Good Attitude: Cooperative Degree of awareness of surroundings: Grossly within normal limits Impulse control: Appears to be good Insight: Appears to be good Fund of knowledge; adequate Judgment: Appears to be adequate Perceptual disorders: No perceptual disorders noted Psychomotor activity: Within normal range Speech: Clear, normal variability and rate Thought content: Unremarkable Visit Vitals Ht 5' 7 Wt 145 lb BMI 22.71 kg/m OB Status Postmenopausal Smoking Status Former BSA 1.76 m Allergies Allergen Reactions Acetaminophen Other Reaction(s): Abdominal Pain Codeine Other Reaction(s): Abdominal Pain Ketoprofen Other Reaction(s): abdominal pain Current Outpatient Medications on File Prior to Visit Medication Sig Dispense Refill ALPRAZolam (Xanax) 0.25 MG tablet Take 1 tablet (0.25 mg) by mouth 3 (three) times a day as needed for anxiety for up to 10 days 30 tablet 0 [DISCONTINUED] colestipol (Colestid) 1 g tablet Take 1-2 tablets (1-2 g) by mouth 3 (three) times a day as needed (diarrhea) 100 tablet 1 [DISCONTINUED] estradiol (Estrace) 1 MG tablet Take 1 tablet (1 mg) by mouth Daily 90 tablet 1 [DISCONTINUED] omeprazole (PriLOSEC) [address] capsule Take 1 capsule (20 mg) by mouth in the morning. Take before meals. Do not crush or chew.. 90 capsule 3 No current facility-administered medications on file prior to visit. 1. Generalized anxiety disorder (CMS/HCC) (Primary) Chronic problem, stable, overall seems to be doing well. She still has some Xanax for those times when something happens and she feels a bit out of control. 2. Gastroesophageal reflux disease without esophagitis Chronic problem, stable with her medications. In prescribing a renewal to their current medication, consideration of the following encompasses moderate decision making; the current prescriptions and supplements, the current allergies and medication intolerances, current medical conditions, and potential drug interactions. Any changes to risks, benefits, and reason for renewing their current medication due to the above were discussed. The patient was given a chance to ask questions today and all questions were answered. The patient is to contact us if any other questions arise or if any problems occur. (Utilizing the original guidelines or the 2020 office/outpatient code guidelines for selecting the level of E/M service, In both sets of guidelines, prescription drug management appears in the moderate medical decision making (MDM) row. Neither the original guidelines nor the new guidelines state that a new prescription or change is needed in order to credit prescription drug management) - omeprazole (PriLOSEC) [address] capsule; Take 1 capsule (20 mg) by mouth in the morning. Take before meals. Do not crush or chew.. Dispense: 90 capsule; Refill: 3 3. Irritable bowel syndrome with both constipation and diarrhea Chronic problem, stable - colestipol (Colestid) 1 g tablet; Take 1-2 tablets (1-2 g) by mouth 3 (three) times a day as needed (diarrhea) Dispense: 100 tablet; Refill: 1 4. Perimenopausal disorder Chronic problem, stable symptomatically. Up-to-date on breast cancer screening. We did discuss how transdermal estrogen medically would be easier on the liver due to the avoidance of 1st pass effect. After discussion we will continue the oral estrogen. - estradiol (Estrace) 1 MG tablet; Take 1 tablet (1 mg) by mouth Daily Dispense: 90 tablet; Refill: 1 5. Screening, lipid - Lipid panel; Future - Lipid panel 6. Screening for diabetes mellitus - Comprehensive metabolic panel; Future - Comprehensive metabolic panel 7. Perioral dermatitis Chronic problem that needs intermittent treatment. I gave her the name of the another steroid cream and asked her to prescott it out and get back to us. She did call us back and this is significantly cheaper for her and we will send it. - mometasone (Elocon) 0.1 % ointment; Apply topically Daily As needed for inflamed lips Dispense: 15 g; Refill: 2 8. At high risk for pancreatic cancer Chronic problem. She does have a pancreatic specialist now in [place]. She is scheduled for Endoscopic ultrasound of the pancreas. documented in this encounter [facility] 04-16-2024 History of Present illness Narrative Images from the original note were not included. Patient ID: Lili Vera is a 68 y.o. female who presents for: Chest Pain Lili Vera complains of hx of chest pain. Onset was 3 days ago. Symptoms have resolved since that time. The patient describes the pain as sharp and radiates to the into neck . Has not happened since that night. Patient's cardiac risk factors are: none. Patient's risk factors for DVT/PE: none. Previous cardiac testing: EKG done yesterday . Review of Systems Constitutional: Negative for chills and fever. Respiratory: Negative for cough, shortness of breath and wheezing. Cardiovascular: Negative for chest pain and palpitations. Gastrointestinal: Negative for abdominal pain. Genitourinary: Negative for frequency and urgency. Objective The patient is pleasant and in no acute distress. The neck is supple and trachea is midline. No masses are appreciated. The heart is regular rate and rhythm without S3, S4. No murmur. The patient has normal respiratory pattern. The breath sounds are symmetrical without evidence of rhonchi or rales. No wheezing. The skin is warm and dry. The lower extremities have trace edema. The patient has good eye contact and speech is clear. Appropriate affect. Visit Vitals Pulse 87 Ht 5' 7 Wt 145 lb SpO2 94% BMI 22.71 kg/m OB Status Postmenopausal Smoking Status Former BSA 1.76 m Allergies Allergen Reactions Acetaminophen Other Reaction(s): Abdominal Pain Codeine Other Reaction(s): Abdominal Pain Ketoprofen Other Reaction(s): abdominal pain Current Outpatient Medications on File Prior to Visit Medication Sig Dispense Refill ALPRAZolam (Xanax) 0.25 MG tablet Take 1 tablet (0.25 mg) by mouth 3 (three) times a day as needed for anxiety for up to 10 days 30 tablet 0 colestipol (Colestid) 1 g tablet Take 1-2 tablets (1-2 g) by mouth 3 (three) times a day as needed (diarrhea) 100 tablet 1 estradiol (Estrace) 1 MG tablet Take 1 tablet (1 mg) by mouth Daily 90 tablet 1 omeprazole (PriLOSEC) 20 MG capsule Take 1 capsule (20 mg) by mouth in the morning. Take before meals. Do not crush or chew.. 90 capsule 3 No current facility-administered medications on file prior to visit. 1. Chest pain, unspecified type She did note she thought about going to the emergency room but decided against it. She did not have any palpitations, diaphoresis, or near syncopal events associated with this. It did not come on with specific activity. It resolved spontaneously. There was no specific radiation up into her neck or shoulder region. We did discuss the possibility of pursuing with further stress test. However this patient exercises very actively in his not had any chest pain associated with her exercises routines. We have mutually agreed that should she get recurrence of chest pain is concerning for her that she will go to the emergency room. 2. Gastroesophageal reflux disease without esophagitis We did discuss and she notes she has had a little bit of increased symptomatology but nothing that she would consider out of the ordinary. We did discuss the possibility, all we can not prove it, that she may have also had an esophageal spasm. documented in this encounter [facility] 03-13-2024 History of Present illness Narrative Images from the original note were not included. Patient ID: Lili Vera is a 68 y.o. female who presents for: Urinary Tract Infection Patient complains of flank pain . He/She has had symptoms for a few days. Patient also complains of back pain. Patient denies fever. Patient does not have a history of recurrent UTI. Patient does have a history of pyelonephritis. Review of Systems Constitutional: Negative for chills and fever. Respiratory: Negative for cough, shortness of breath and wheezing. Cardiovascular: Negative for chest pain and palpitations. Gastrointestinal: Negative for abdominal pain. Genitourinary: Negative for frequency and urgency. Musculoskeletal: Positive for back pain. Objective The patient is pleasant and in no acute distress The patient does not appear to have a gross neurologic deficit. The patient has good eye contact and clear speech No specific CVA tenderness. She is however tight on the right lumbar appears final region with a palpable muscle roll from approximately L4 up into the T1 area above her rib on that side. This is very tender to touch. We did not put her through range of motion. Visit Vitals Ht 5' 7 Wt 145 lb BMI 22.71 kg/m OB Status Postmenopausal Smoking Status Former BSA 1.76 m Office Visit on 03/13/2024 Component Date Value Ref Range Status Color, UA 03/13/2024 Colorless Final Clarity, UA 03/13/2024 Clear Final Glucose, UA 03/13/2024 Negative Negative - 1999(110) ++++ mg/dL Final Bilirubin, UA 03/13/2024 Negative Negative - 4(70) +++ mg/dL Final Ketones, UA 03/13/2024 Negative Negative - 160(16) ++++ mg/dL Final Spec Grav, UA 03/13/2024 1.015 1 - 1.03 Final Blood, UA 03/13/2024 Negative Negative - 50 Se/mcL Final pH, UA 03/13/2024 6.0 5 - 9 Final Protein, UA 03/13/2024 Negative Negative - 1999(20) ++++ mg/dL Final Urobilinogen, UA 03/13/2024 0.2 0.2 - 12 mg/dL Final Leukocytes, UA 03/13/2024 Negative Negative - 500+++ Tate/mcL Final Nitrite, UA 03/13/2024 Negative Negative - Positive Final Allergies Allergen Reactions Acetaminophen Other Reaction(s): Abdominal Pain Codeine Other Reaction(s): Abdominal Pain Ketoprofen Other Reaction(s): abdominal pain Current Outpatient Medications on File Prior to Visit Medication Sig Dispense Refill ALPRAZolam (Xanax) 0.25 MG tablet Take 1 tablet (0.25 mg) by mouth 3 (three) times a day as needed for anxiety for up to 10 days 30 tablet 0 colestipol (Colestid) 1 g tablet Take 1-2 tablets (1-2 g) by mouth 3 (three) times a day as needed (diarrhea) 100 tablet 1 estradiol (Estrace) 1 MG tablet Take 1 tablet (1 mg) by mouth Daily 90 tablet 1 omeprazole (PriLOSEC) [address] capsule Take 1 capsule (20 mg) by mouth in the morning. Take before meals. Do not crush or chew.. 90 capsule 3 No current facility-administered medications on file prior to visit. 1. Lumbar strain, initial encounter Acute problem. It turns out after inquiring approximately 1-2 days prior to the pain starting she actually moved a pile of rocks and distributed around their pool. In prescribing a new medication consideration of the following encompasses moderate decision making: the current prescriptions and supplements, the current allergies and medication intolerances, the current medical conditions, and potential drug interactions. Risks, benefits, and reason for starting their medication were discussed. The patient was given a chance to ask questions today and all questions were answered. The patient is to contact us if any other questions arise or if any problems occur with the adjustment in their medication. - cyclobenzaprine (Flexeril) 5 MG tablet; Take 1 tablet (5 mg) by mouth in the morning and 1 tablet (5 mg) in the evening and 1 tablet (5 mg) before bedtime. Do all this for 10 days. Dispense: 30 tablet; Refill: 0 - nabumetone (Relafen) 750 MG tablet; Take 1 tablet (750 mg) by mouth in the morning and 1 tablet (750 mg) before bedtime. Do all this for 10 days. Dispense: 20 tablet; Refill: 0 2. Flank pain - POCT urinalysis dipstick manually resulted 3. BMI 22.0-22.9, adult documented in this encounter [facility] 02-26-2024 History of Present illness Narrative Images from the original note were not included. Patient ID: Lili Vera is a 68 y.o. female who presents for: Anxiety Patient is here for evaluation of anxiety. He/She has the following anxiety symptoms: none. Onset of symptoms was approximately several years ago. Symptoms have been stable since that time. He/She denies current suicidal and homicidal ideation. Family history significant for no psychiatric illness.Possible organic causes contributing are: none. Previous treatment includes medication Xanax. He/She complains of the following medication side effects: none. GERD Paitent complains of heartburn. This has been associated with no other symptoms. He/She denies abdominal bloating, belching, belching and eructation, and difficulty swallowing. Symptoms have been present for several years . He/She denies dysphagia. He/She has not lost weight. He/She denies melena, hematochezia, hematemesis, and coffee ground emesis. Symptoms include: none Feels better since starting HRT treatment: Yes Other Symptoms: none Date of Last Mammogram: 11/2023 Review of Systems Constitutional: Negative for chills and fever. Respiratory: Negative for cough, shortness of breath and wheezing. Cardiovascular: Negative for chest pain and palpitations. Gastrointestinal: Negative for abdominal pain. Genitourinary: Negative for frequency and urgency. Objective Appearance: Well-groomed, in no acute distress Abnormal body movements: None Affect: Appropriate and appears to be Expansive Attention: Good Attitude: Cooperative Degree of awareness of surroundings: Grossly within normal limits Impulse control: Appears to be good Insight: Appears to be good Fund of knowledge; adequate Judgment: Appears to be adequate Perceptual disorders: No perceptual disorders noted Psychomotor activity: Within normal range Speech: Clear, normal variability and rate Thought content: Unremarkable Visit Vitals Ht 5' 7 Wt 145 lb BMI 22.71 kg/m OB Status Postmenopausal Smoking Status Former BSA 1.76 m PDMP reviewed, Jack Nava MD on 02/26/2024 9:09 AM, appears appropriate COMM reviewed Allergies Allergen Reactions Acetaminophen Other Reaction(s): Abdominal Pain Codeine Other Reaction(s): Abdominal Pain Ketoprofen Other Reaction(s): abdominal pain Current Outpatient Medications on File Prior to Visit Medication Sig Dispense Refill ALPRAZolam (Xanax) 0.25 MG tablet Take 0.25 mg by mouth 3 (three) times a day as needed for anxiety colestipol (Colestid) 1 g tablet Take 1-2 tablets (1-2 g) by mouth 3 (three) times a day as needed (diarrhea) 100 tablet 0 estradiol (Estrace) 1 MG tablet Take 1 tablet (1 mg) by mouth Daily 90 tablet 0 omeprazole (PriLOSEC) [address] capsule Take 1 capsule (20 mg) by mouth in the morning. Take before meals. Do not crush or chew.. 90 capsule 3 No current facility-administered medications on file prior to visit. 1. Generalized anxiety disorder (CMS/HCC) Chronic problem, stable. Patient has been utilizing alprazolam on an as-needed basis and appropriately for years. She only uses it when the anxiety becomes overwhelming where she is in a near panic attack. She perceives he would benefit from the medication and denies any side effects. There is no evidence of abuse or diversion. I specifically note the patient has one or more high risk medications that is a chronic problem that specifically increases complexity of decision making and complicates all prescribing including prescription renewal consistent with a moderate or complex degree of decision making. A high-risk medicine is one that may cause serious health problems if not taken the correct way, or taken with another drug or food item that it may interact with. If the high-risk medication includes a controlled or reportable substance, The OARRS and NARX scores were reviewed and seem to be consistent with their prescribing pattern. The Current Opioid Misuse Measure (COMM) is reviewed and there is no evidence of aberrant behavior or abuse. Treatment regimens are increasingly complex and potentially harmful, and people with high risk medications need regular review and prescribing optimization. - ALPRAZolam (Xanax) 0.25 MG tablet; Take 1 tablet (0.25 mg) by mouth 3 (three) times a day as needed for anxiety for up to 10 days Dispense: 30 tablet; Refill: 0 2. Gastroesophageal reflux disease without esophagitis Chronic problem, stable, patient has previously attempted discontinuation unsuccessfully. In prescribing a renewal to their current medication, consideration of the following encompasses moderate decision making; the current prescriptions and supplements, the current allergies and medication intolerances, current medical conditions, and potential drug interactions. Any changes to risks, benefits, and reason for renewing their current medication due to the above were discussed. The patient was given a chance to ask questions today and all questions were answered. The patient is to contact us if any other questions arise or if any problems occur. (Utilizing the original 1994/1996 guidelines or the 2020 office/outpatient code guidelines for selecting the level of E/M service, In both sets of guidelines, prescription drug management appears in the moderate medical decision making (MDM) row. Neither the original guidelines nor the new guidelines state that a new prescription or change is needed in order to credit prescription drug management) - omeprazole (PriLOSEC) [address] capsule; Take 1 capsule (20 mg) by mouth in the morning. Take before meals. Do not crush or chew.. Dispense: 90 capsule; Refill: 3 3. Irritable bowel syndrome with both constipation and diarrhea Chronic problem that is stable. After previously trying multiple different things to help manage this, the colestipol has served her well. - colestipol (Colestid) 1 g tablet; Take 1-2 tablets (1-2 g) by mouth 3 (three) times a day as needed (diarrhea) Dispense: 100 tablet; Refill: 1 4. 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 6. Perimenopausal disorder Chronic problem that has been improved symptomatic with the estradiol. The patient is tolerating this well. I did discuss with her that the prevailing opinion in it is better served with transdermal patches. We have had this discussion before and she prefers to continue the pill form. - estradiol (Estrace) 1 MG tablet; Take 1 tablet (1 mg) by mouth Daily Dispense: 90 tablet; Refill: 1 7. BMI 22.0-22.9, adult documented in this encounter [facility] 11-02-2023 History of Present illness Narrative A [...] Occasional alcohol use. No illicits. Lives in [place]. x 43 years. Email: .[employer]. Objective There were no vitals taken for [...] did request her CT images for review. Lin Archer PA-C documented in this encounter [facility] Work Phone: Evaluation note Diagnosis Family history of pancreatic cancer- Primary Family history of malignant neoplasm of gastrointestinal tract documented in this encounter 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 Perimenopausal disorder Unspecified menopausal and postmenopausal disorder BMI 22.0-22.9, adult documented in this encounter [facility]* Diagnosis Lumbar strain, initial encounter- Primary Flank pain Abdominal pain, unspecified site BMI 22.0-22.9, adult documented in this encounter [facility]* Diagnosis Generalized anxiety disorder (CMS/HCC)- Primary Generalized anxiety disorder Gastroesophageal reflux disease without esophagitis Esophageal reflux Irritable bowel syndrome with both constipation and diarrhea Perimenopausal disorder Unspecified menopausal and postmenopausal disorder Screening, lipid Screening for diabetes mellitus Perioral dermatitis Rosacea At high risk for pancreatic cancer documented in this encounter [facility] Summary Purpose Family History No Family History Records FoundNo Family History Records FoundNo Family History Records Found Advance Directives No Advanced Directives Records FoundDocuments on File Type Date Recorded 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 Advance Directives and Living Will 10/11/2021 2020-09-08 Power Of Fish 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 Additional Source Comments INFORMATION SOURCE (unrecogn ized section and content) DATE CREATED AUTHOR 11/03/2022 [facility] DATE CREATED AUTHOR AUTHOR'S ORGANIZ ATION 11/04/2023 [facility] DATE CREATED AUTHOR AUTHOR'S ORGANIZ ATION 08/16/2024 [facility] Specialists EPIC Reason for Visit (unrecogniz ed section and content) Reason Comments Follow-up Reason Comments Med Refill Reason Comments GERD Anxiety Hormones Reason Comments UTI Reason Comments Anxiety Care Teams (unrecognized sec tion and content) Dust Sampler Relationship Specialty Start Date End Date Jack Nava MD [address] [place] [phone] (Fax) PCP - General Family Medicine 11/28/22 Dust Sampler Relationship Specialty Start Date End Date Jack Nava MD [address] [place] [address] (Fax) PCP - General Family Medicine 11/28/22 Dust Sampler Relationship Specialty Start Date End Date Jack Nava MD [address] [facility] [place] [address] (Fax) PCP - General Family Medicine 11/28/22 Dust Sampler Relationship Specialty Start Date End Date Jack Nava MD [address] [facility] [place] [address] (Fax) PCP - General [facility] 11/28/22 Dust Sampler Relationship Specialty Start Date End Date Jack Nava MD [address] [place] [address] (Fax) PCP - General [facility] 11/28/22 Dust Sampler Relationship Specialty Start Date End Date Jack Nava MD [address] [facility] 100 [place] [address] (Fax) PCP - General [facility] 11/28/22 Dust Sampler Relationship Specialty Start Date End Date Jack Nava MD 112 [facility] 100 [place] [address] (Fax) PCP - General Family [facility] 11/28/22 FOR RECORDS PERTAINING TO PATIENTS WHO ARE [...] BE BASED ON THE PRIMARY CLINICAL RECORDS. [facility] [employer] [facility]. provides no warranty or guarantee of the accuracy or completeness of information in this document.
[2024-08-19 10:00] LABS: Alanine Aminotransferase 25 U/L (14-59); Albumin Globulin Ratio 1.1; Albumin Level 3.4 g/dL (3.4-5.0); Alkaline Phosphatase 35 U/L (46-116); Anion Gap 10.3; Aspartate Amino Transferase 17 U/L (15-37); BUN Creatinine Ratio 8.3; Bilirubin Total 0.8 mg/dL (0.2-1.0); Calcium 9.1 mg/dL (8.5-10.1); Chloride 104 mmol/L (98-107); Chol HDL Ratio 2.3; Cholesterol 239 mg/dL (<=200); Estimated GFR (African America >60 (>=60 mL/min/1.73m^2); Estimated GFR (Non-African Ame 50 (>=60 mL/min/1.73m^2); Globulin 3.2 g/dL; Glucose 98 mg/dL (74-106); HDL Cholesterol 102 mg/dL (40-60); Potassium 4.3 mmol/L (3.5-5.1); Sodium 141 mmol/L (136-145); Total Protein 6.6 g/dL (6.4-8.2); Triglycerides 168 mg/dL (<=150); VLDL CHOLESTEROL 33.6 mg/dL
[2024-08-19 13:31] LABS: Uric Acid 3.6 mg/dL (2.6-6.0)
== END 2024-08-19 07:45 | disposition home or self-care (01) ==
LOC: LAB 07:46
PROVIDERS: PCP Family Medicine; Visit Provider Family Medicine
DX: Z13.1 Encounter for screening for diabetes mellitus (principal); Z13.220 Encounter for screening for lipoid disorders; N18.31 Chronic kidney disease, stage 3a
CPT/HCPCS: 36415; 80053; 80061; 84550

== ENCOUNTER 2024-11-20 06:50 | Outpatient (OUT) | payer MEDICARE, SELFPAY ==
[2024-11-20 09:17] LABS: BUN Creatinine Ratio 11.7; Calcium 9.4 mg/dL (8.5-10.1); Carbon Dioxide 29.5 mmol/L (21.0-32.0); Chloride 105 mmol/L (98-107); Chol HDL Ratio 2.1; Cholesterol 232 mg/dL (<=200); Estimated GFR (African America >60 (>=60 mL/min/1.73m^2); Estimated GFR (Non-African Ame 59 (>=60 mL/min/1.73m^2); Glucose 99 mg/dL (74-106); HDL Cholesterol 108 mg/dL (40-60); Potassium 4.5 mmol/L (3.5-5.1); Sodium 142 mmol/L (136-145); Triglycerides 74 mg/dL (<=150); VLDL CHOLESTEROL 14.8 mg/dL
== END 2024-11-20 06:51 | disposition home or self-care (01) ==
LOC: LAB 06:54
PROVIDERS: PCP Family Medicine; Visit Provider Family Medicine
DX: N17.9 Acute kidney failure, unspecified (principal); N18.31 Chronic kidney disease, stage 3a; E78.00 Pure hypercholesterolemia, unspecified
CPT/HCPCS: 36415; 80048; 80061

== ENCOUNTER 2025-02-03 09:49 | Outpatient (OUT) | payer MEDICARE, SELFPAY ==
--- OUTSIDE RECORDS SUMMARY | 2025-02-03 09:52 | XMS_ITS | Encounter Summary ---
Author Organization [facility] Address [address] [place] [address] Care Team Providers Care Human Resources Generalist Name Role Phone Jack York MD Primary Care Provider [phone] Jack York MD Unavailable [phone] Reason for Visit * Reason Comments Med Refill Encounter Details Date Type Department Care Team (Late st Contact Info) Description 11/20/2024 Refill [facility] [address] [place] [address] Jack York MD [address] [place] [address] Irritable bowel syndrome with both constipation and diarrhea Social History Tobacco Use Types Packs/Day Years Used Date Smoking Tobacco: Former Cigarettes Q uit: 05/18/1997 Smokeless Tobacco: Former Comments:Last smoked : > 10 years Alcohol Use Standard Drinks/Week Comments Yes 11 (1 standard drink = 0.6 oz pure alcohol) Caffeine intake : 1-2 cups per day B1300 Health Literacy Answer Date Recor ded How often do you need to hav e someone help you when you read instructions, pamphlets, or other written material from your doctor or pharmacy? Never 08/07/2024 Humiliation, Afraid, Rape, and Kick questionnair e Answer Date Recorded Within the last year, have y ou been afraid of your partner or ex-partner? No 08/01/2023 Within the last year, have y ou been humiliated or emotionally abused in other ways by your partner or ex-partner? No Within the last year, have y ou been kicked, hit, slapped, or otherwise physically hurt by your partner or ex-partner? No 08/01/2023 Within the last year, have y ou been raped or forced to have any kind of sexual activity by your partner or ex-partner? No 08/01/2023 Social Connection and Isolation Panel [NHANES] A nswer Date Recorded In a typical week, how many times do you talk on the phone with family, friends, or neighbors? Once a week 08/07/2024 How often do you get together with friends or re latives? Once a week 08/07/2024 How often do you attend orthodoxy or taoist serv ices? Never 08/07/2024 Do you belong to any clubs o r organizations such as orthodoxy groups, unions, fraternal or athletic groups, or school groups? No 08/07/2024 How often do you attend meet ings of the clubs or organizations you belong to? Never 08/07/2024 Are you , , di vorced, , never , or living with a partner? 08/07/2024 AUDIT-C Answer Date Recorded Q1: How often do you have a drink containing alc ohol? 2-3 times a week 08/07/2024 Q2: How many drinks containi ng alcohol do you have on a typical day when you are drinking? 3 or 4 08/07/2024 Q3: How often do you have si x or more drinks on one occasion? Never 08/07/2024 Overall Financial Resource Strain (CARDIA) Answe r Date Recorded How hard is it for you to pa y for the very basics like food, housing, medical care, and heating? Not hard at all 08/07/2024 PHQ-2 Answer Date Recorded Patient Health Questionnaire-2 Score 0 02/26/2024 [facility]ational Stress Questionnaire Answer Date Recorded Do you feel stress - tense, restless, nervous, or anxious, or unable to sleep at night because your mind is troubled all the time - these days? Only a little 08/07/2024 Exercise Vital Sign Answer Date Recorde d On average, how many days pe r week do you engage in moderate to strenuous exercise (like a brisk walk)? 5 days 08/07/2024 On average, how many minutes do you engage in exercise at this level? 80 min 08/07/2024 Hunger Vital Sign Answer Date Recorded Within the past 12 months, y ou worried that your food would run out before you got the money to buy more. Never true 08/07/19 25 Within the past 12 months, t he food you bought just didn't last and you didn't have money to get more. Never true 08/07/2024 PRAPARE - Transportation Answer Date Re corded In the past 12 months, has l ack of transportation kept you from medical appointments or from getting medications? No 07/23 In the past 12 months, has l ack of transportation kept you from meetings, work, or from getting things needed for daily living? No 08/07/2024 Housing Stability Vital Sign Answer Bobby e Recorded In the last 12 months, was t here a time when you were not able to pay the mortgage or rent on time? No 08/01/2023 In the last 12 months, how many places have you lived? 1 08/01/2023 In the last 12 months, was t here a time when you did not have a steady place to sleep or slept in a mcfp (including now)? No 08/01/2023 Housing Stability Vital Sign Answer Bobby e Recorded In the last 12 months, was t here a time when you were not able to pay the mortgage or rent on time? No 08/07/2024 Number of Times Moved in the Last Year Not on fi le 08/07/2024 At any time in the past [address] [facility], were you homeless or living in a mcfp (including now)? No 08/07/2024 Comments No Sex and Gender Information Value Date Recorded Sex Assigned at Not on file Legal Sex Female 7:22 PM EDT Gender Identity Not on file Sexual Orientation Not on file documented as of this encounter Plan of Treatment Upcoming Encounters Date Type Department Care Team (Late st Contact Info) Description 03/02/2025 3:50 PM EDT Office Visit [facility] [address] [place] [phone] Angelica Lucas, COTTON GINNER-PHYSICS TECHNICIAN [address] [place] [address] documented as of this encounter Visit Diagnoses Diagnosis Irritable bowel syndrome with both constipation and diarrhea documented in this encounter Care Teams Human Resources Generalist Relationship Specialty Start Date End Date Jack York MD [address] [address] PCP - General Family Medicine 11/28/22 Jack York MD [address] [address] PCP - ACO Reach 08/29/24 documented as of this encounter
--- OUTSIDE RECORDS SUMMARY | 2025-02-03 09:52 | XMS_ITS | Encounter Summary ---
Author Organization [facility] Address [address] [place] [address] Care Team Providers Care Logistics Operations Manager Name Role Phone Jack York MD Primary Care Provider [phone] Jack York MD Unavailable [phone] Encounter Details Date Type Department Care Team (Late st Contact Info) Description 02/04/2024 Orders Only [facility] [address] [place] [address] Jack York MD [address] [place] [address] (Fax) Social History Tobacco Use Types Packs/Day Years Used Date Smoking Tobacco: Former Cigarettes Q uit: 05/18/1997 Smokeless Tobacco: Never Comments:Last smoked : > 10 years Alcohol Use Standard Drinks/Week Comments Yes 11 (1 standard drink = 0.6 oz pure alcohol) Caffeine intake : 1-2 cups per day Humiliation, Afraid, Rape, and Kick questionnair e [...] family, friends, or neighbors? Once a week 08/01/2023 How often do you get together with friends or re latives? Once a week 08/01/2023 How often do you attend gnosticism or taoist serv ices? Never 08/01/2023 Do you belong to any clubs o r organizations such as gnosticism groups, unions, fraternal or athletic groups, or school groups? No 08/01/2023 How often do you attend meet ings of the clubs or organizations you belong to? Never 08/01/2023 Are you , , di vorced, , never , or living with a partner? 08/01/2023 AUDIT-C Answer Date Recorded Q1: How often do you have a drink containing alcohol? 4 or more times a week 08/01/2023 Q2: How many drinks containi ng alcohol do you have on a typical day when you are drinking? 3 or 4 Q3: How often do you have si x or more drinks on one occasion? Never 08/01/2023 Overall Financial Resource Strain (CARDIA) Answe r Date Recorded How hard is it for you to pa y for the very basics like food, housing, medical care, and heating? Not hard at all 08/01/2023 PHQ-2 Answer Date Recorded Patient Health Questionnaire-2 Score 0 12/20/2023 [facility] - Occupational Stress Questionnaire Answer Date Recorded Do you feel stress - tense, restless, nervous, or anxious, or unable to sleep at night because your mind is troubled all the time - these days? Only a little 08/01/2023 Exercise Vital Sign Answer Date Recorde d On average, how many days pe r week do you engage in moderate to strenuous exercise (like a brisk walk)? 5 days 08/01/2023 On average, how many minutes do you engage in exercise at this level? 120 min 08/01/2023 Hunger Vital Sign Answer Date Recorded Within the past 12 months, y ou worried that your food would run out before you got the money to buy more. Never true 08/01/19 24 Within the past 12 months, t he food you bought just didn't last and you didn't have money to get more. Never true 08/01/2023 PRAPARE - Transportation Answer Date Re corded In the past 12 months, has l ack of transportation kept you from medical appointments or from getting medications? No 07/23 In the past 12 months, has l ack of transportation kept you from meetings, work, or from getting things needed for daily living? No 08/01/2023 Housing Stability Vital Sign Answer [...] place to sleep or slept in a usp (including now)? No 08/01/2023 Comments No Sex and Gender Information Value Date Recorded Sex Assigned at Not on file Legal Sex Female 7:22 PM EDT Gender Identity Not on file Sexual Orientation Not on file documented as of this encounter Plan of Treatment Upcoming Encounters Date Type Department Care Team (Late st Contact Info) Description 03/02/2025 3:50 PM EDT Office Visit [facility] [address] [place] [phone] Angelica Lucas APRN-GYNAECOLOGICAL ONCOLOGIST [address] [place] [address] documented as of this encounter Visit Diagnoses Not on filedocumented in this encounter Care Teams Logistics Operations Manager Relationship Specialty Start Date End Date Jack York MD [address] [place] [address] PCP - General Family Medicine 11/28/22 Jack York MD [address] [place] [address] PCP - ACO Reach 08/29/24 documented as of this encounter
--- OUTSIDE RECORDS SUMMARY | 2025-02-03 09:52 | XMS_ITS | Encounter Summary ---
Author Organization [facility] Address [address] [place] [address] Care Team Providers Care Hardboard Coating Machine Operator Name Role Phone Jack York MD Unavailable [phone] Jack York MD Primary Care Provider [phone] Jack York MD Unavailable [phone] Jack York MD Unavailable [phone] Encounter Details Date Type Department Care Team (Late st Contact Info) Description 02/26/2023 Abstract [facility] [address] [place] [address] Jack York MD 112 [facility] 100 [place] [address] (Fax) Social History Tobacco Use Types Packs/Day Years Used Date Smoking Tobacco: Never Assessed Comments Unknown Sex and Gender Information Value Date Recorded Sex Assigned at Not on file Legal Sex Female 7:22 PM EDT Gender Identity Not on file Sexual Orientation Not on file documented as of this encounter Plan of Treatment Upcoming Encounters Date Type Department Care Team (Late st Contact Info) Description 03/02/2025 3:50 PM EDT Office Visit [facility] [address] [facility] 350 [place] [phone] Angelica Lucas APRN-TERRAZZO POLISHER HELPER [address] [facility] 350 [place] [address] documented as of this encounter Visit Diagnoses Not on filedocumented in this encounter Care Teams Hardboard Coating Machine Operator Relationship Specialty Start Date End Date Jack York MD [address] [place] [address] (Fax) PCP - Medical [place] [facility] 12/21/22 09/29/23 Jack York MD [address] [place] [address] (Fax) PCP - General Family Medicine 11/28/22 Jack York MD [address] [place] [address] [address] [facility] 03/23/23 09/21/23 Jack York MD [address] [place] [address] PCP - ACO Reach 08/29/24 documented as of this encounter
--- OUTSIDE RECORDS SUMMARY | 2025-02-03 09:52 | XMS_ITS | Encounter Summary ---
Author Organization [facility] Address [address] [place] [address] Care Team Providers Care Video Technician Name Role Phone Jack Nava MD Primary Care Provider [phone] Jack Nava MD Unavailable [phone] Encounter Details Date Type Department Care Team (Late st Contact Info) Description 04/15/2024 Clinisync Result Encounter [facility] External Department Unsolicited Jack Nava MD [address] [address] Social History Tobacco Use Types Packs/Day Years [...] week 08/01/2023 How often do you attend muslim or worship serv ices? Never 08/01/2023 Do you belong to any clubs o r organizations such as muslim groups, unions, fraternal or athletic groups, or [...] Recorded Patient Health Questionnaire-2 Score 0 02/26/2024 [facility] - Occupational Stress Questionnaire Answer Date [...] place to sleep or slept in a snf (including now)? No 08/01/2023 Comments No Sex [...] DERM [address] [place] [phone] Angelica Lucas APRN-SLIP SHEETER [address] [place] [address] documented as of this encounter Procedures Procedure Name Priority Date/Time Associated Diagnosis Comments ECG 12-LEAD 04/15/2024 1:58 PM EDT documented in this encounter Results * ECG 12-LEAD (04/15/2024 1:58 PM EDT) Anatomical Region Laterality Modality Other 04/15/2024 1:58 PM EDT Narrative 04/15/2024 10:36 PM EDT The [address] [address] Electrocardiograph Report Signed Patient: YO VERA MR#: [id number] : 1955 Acct:[id number] Age/Sex: 68 / F ADM Date: 04/15/24 Loc: CARD Attending Dr: JACK NAVA Ordering Physician: JACK NAVA Date of Service: 04/15/24 Procedure(s): ECG 12 lead Accession Number(s): [id number] cc: Test Date: 2024-04-15 Pat Name: YO VERA Department: Room: - Gender: Female Business Development Agent: : 1955 Requested By: JACK NAVA Order Number: [id number] Reading MD: MICKEY LINDA Measurements Intervals [place] Rate: 63 P: 78 DE: 150 QRS: 86 QRSD: 93 T: 62 QT: 416 QTc: 426 Interpretive Statements SINUS RHYTHM No previous ECG available for comparison Electronically Signed On 04-15-2024 22:36:29 EDT by MICKEY LINDA Dictated By: Mickey Linda D.O. Signed By: 04/15/24223504/15/242235 DD/ 1358 TD/TT: Driver Courier: Procedure Note Radiology, Radiologist, MD - 04/15/2024 [place] [address] Electrocardiograph Report Signed Patient: YO VERA MMR#: [id number] : 1955cct:[id number] Age/Sex: 68 / FADM Date: 04/15/24 Loc: CARD Attending Dr: JACK NAVA Ordering Physician: JACK NAVA Date of Service: 04/15/24 Procedure(s): ECG 12 lead Accession Number(s): [id number] cc: Test Date: 2024-04-15 Pat Name: YO VERA Department: Room: - Gender: Female Business Development Agent: : 1955 Requested By: JACK NAVA Order Number: [id number] Reading MD: MICKEY LINDA Measurements Intervals [place] Rate: 63 P: 78 DE: 150 QRS: 86 QRSD: 93 T: 62 QT: 416 QTc: 426 Interpretive Statements SINUS RHYTHM No previous ECG available for comparison Electronically Signed On 04-15-2024 22:36:29 EDT by MICKEY LINDA Dictated By: Mickey Linda D.O. Signed By:04/15/24223504/15/242235 DD/ 1358 TD/TT: Driver Courier: Jack Nava MD [facility] Edited Res ult - Final documented in this encounter Visit Diagnoses Not on filedocumented in this encounter Care Teams Video Technician Relationship Specialty Start Date End Date Jack Nava MD [address] [address] [address] PCP - General Family Medicine 11/28/22 Jack Nava MD [address] [place] [address] [address] PCP - ACO Reach 08/29/24 documented as of this encounter
--- OUTSIDE RECORDS SUMMARY | 2025-02-03 09:52 | XMS_ITS | Encounter Summary ---
Author Organization [facility] Address [address] [place] [address] Care Team Providers Care Turf Farmer Name Role Phone Jack Nava MD Primary Care Provider [phone] Jack Nava MD Unavailable [phone] Encounter Details Date Type Department Care Team (Late st Contact Info) Description 11/23/2023 Clinisync Result Encounter [facility] External Department Unsolicited Jack Nava MD [address] [address] Social History Tobacco Use Types Packs/Day Years Used Date Smoking Tobacco: Former Cigarettes Smokeless Tobacco: Never Comments:Last smoked : > 10 years Alcohol Use Standard Drinks/Week Comments Yes 1 (1 standard drink = 0.6 oz pure [...] week 08/01/2023 How often do you attend confucianism or yazidi serv ices? Never 08/01/2023 Do you belong to any clubs o r organizations such as confucianism groups, unions, fraternal or athletic groups, or [...] when you are drinking? 3 or 4 4 Q3: How often do you have si x or more drinks on one occasion? Never 08/01/2023 Overall Financial Resource Strain (CARDIA) Answe r Date Recorded How hard is it for you to pa y for the very basics like food, housing, medical care, and heating? Not hard at all 08/01/2023 [facility] - Occupational Stress Questionnaire Answer Date [...] place to sleep or slept in a senior living (including now)? No 08/01/2023 Comments No Sex [...] DERM [address] [place] [address] Angelica Lucas APRN-ELECTRICAL TECHNICIAN [address] [place] [address] documented as of this encounter Procedures Procedure Name Priority Date/Time Associated Diagnosis Comments MM TOMOSYNTHESIS DIAGNOSTIC BI 11/23/2023 10:54 AM EDT documented in this encounter Results * MM TOMOSYNTHESIS DIAGNOSTIC BI (11/23/2023 10:54 AM EDT) Anatomical Region Laterality Modality Other 11/23/2023 10:5 4 AM EDT Narrative 11/23/2023 10:55 AM EDT The [address] [address] Mammography Report Signed Patient: YO VERA MR#: [id number] : 1955 Acct:[id number] Age/Sex: 68 / F ADM Date: 11/23/23 Loc: MAMMO Attending Dr: JACK NAVA Ordering Physician: JACK NAVA Results: Date of Service: 11/23/23 Follow Up: Procedure(s): MM tomosynthesis diagnostic BI Accession Number(s): [id number] cc: JACK NAVA Patient Name: YO VERA MR#: [id number] : 1955 Exam Date: 11/23/2023 Ordering Doctor: DR JACK NAVA . RADIOLOGY REPORT PROCEDURE: MM TOMOSYNTHESIS DIAGNOSTIC BI, 11/23/2023, 09:28 US BREAST LT LIMITED, 11/23/2023, 09:49 COMPARISON: MG MAMM SCREEN 3D VICKEY CAD, 02/14/2022. MM TOMOSYNTHESIS SCREENING BI, 02/22/2023. INDICATIONS: Mass Of Upper Outer Quadrant Of Left Breast Calculator Name NCI Breast Cancer Risk Assessment Tool 5 Year Breast Cancer Risk 3.00% Lifetime Breast Cancer Risk 9.90% Personal Breast Cancer No Personal Ovarian Cancer No Treatments None Family Cancers Mother with breast cancer at age 71; Sister with pancreas cancer at age 66; Father with pancreas cancer at age 59; Sister with bladder cancer at age 62; Sister with pancreas cancer at age 65; Brother with pancreas cancer at age 69. LOCATION: [facility] BREAST COMPOSITION: The breasts are heterogeneously dense,which may obscure small masses. FINDINGS: DIAGNOSTIC CATEGORY 2--BENIGN FINDING. NO CHANGE FROM COMPARISON. The breasts are stable in size and overall fibroglandular configuration. Scattered benign-appearing calcifications are present. Scattered benign-appearing lymph nodes are present. RIGHT BREAST: No significant suspicious finding. LEFT BREAST: No significant suspicious finding. Warren marker indicates a palpable mass upper-outer quadrant, mid posterior breast. No mammographic or ultrasound is demonstrated in this region. Further evaluation should be based on clinical and physical exam RECOMMENDATIONS: ROUTINE MAMMOGRAM AND CLINICAL EVALUATION IN 12 MONTHS. PLEASE NOTE: A NORMAL MAMMOGRAM DOES NOT EXCLUDE THE POSSIBILITY OF BREAST CANCER. A CLINICALLY SUSPICIOUS PALPABLE LUMP SHOULD BE BIOPSIED. Dictated by: Rosendo Middleton MD on 11/23/2023 at 10:51 Approved by: Rosendo Middleton MD on 11/23/2023 at 10:54 Dictated By: Rosendo Middleton M.D. Signed By: 11/23/23 1055 DD/ 1054 TD/TT: Excel Developer: Procedure Note Radiology, Radiologist, MD - 11/23/2023 [place] [address] Mammography Report Signed Patient: YO VERA MMR#: [id number] : 7Acct:[id number] Age/Sex: 68 / FADM Date: 11/23/23 Loc: MAMMO Attending Dr: JACK NAVA Ordering Physician: JACK NAVAResults: Date of Service: 11/23/23Follow Up: Procedure(s): MM tomosynthesis diagnostic BI Accession Number(s): [id number] cc: JACK NAVA Patient Name: YO VERA MR#: [id number] : 1955 Exam Date: 11/23/2023 Ordering Doctor: DR JACK NAVA . RADIOLOGY REPORT PROCEDURE: MM TOMOSYNTHESIS DIAGNOSTIC BI, 11/23/2023, 09:28 US BREAST LT LIMITED, 11/23/2023, 09:49 COMPARISON: MG MAMM SCREEN 3D VICKEY CAD, 02/14/2022. MM TOMOSYNTHESIS SCREENING BI, 02/22/2023. INDICATIONS: Mass Of Upper Outer Quadrant Of Left Breast Calculator Name NCI Breast Cancer Risk Assessment Tool 5 Year Breast Cancer Risk 3.00% Lifetime Breast Cancer Risk 9.90% Personal Breast Cancer No Personal Ovarian Cancer No Treatments None Family Cancers Mother with breast cancer at age 71; Sister withpancreas cancer at age 66; Father with pancreas cancer at age 59; Sister withbladder cancer at age 62; Sister with pancreas cancer at age 65; Brother with pancreas cancer at age 69. LOCATION: [facility] BREAST COMPOSITION: The breasts are heterogeneously dense,which may obscure small masses. FINDINGS: DIAGNOSTIC CATEGORY 2--BENIGN FINDING. NO CHANGE FROM COMPARISON. The breasts are stable in size and overall fibroglandular configuration. Scattered benign-appearing calcifications are present. Scattered benign-appearing lymph nodes are present. RIGHT BREAST: No significant suspicious finding. LEFT BREAST: No significant suspicious finding. Warren markerindicates a palpable mass upper-outer quadrant, mid posterior breast. No mammographicor ultrasound is demonstrated in this region. Further evaluation should bebased on clinical and physical exam RECOMMENDATIONS: ROUTINE MAMMOGRAM AND CLINICAL EVALUATION IN 12 MONTHS. PLEASE NOTE: A NORMAL MAMMOGRAM DOES NOT EXCLUDE THE POSSIBILITY OFBREAST CANCER. A CLINICALLY SUSPICIOUS PALPABLE LUMP SHOULD BE BIOPSIED. Dictated by: Rosendo Middleton MD on 11/23/2023 at 10:51 Approved by: Rosendo Middleton MD on 11/23/2023 at 10:54 Dictated By: Rosendo Middleton M.D. Signed By:11/23/23 1055 DD/ 1054 TD/TT: Excel Developer: Jack Nava MD [facility] Final Resu lt documented in this encounter Visit Diagnoses Not on filedocumented in this encounter Care Teams Turf Farmer Relationship Specialty Start Date End Date Jack Nava MD [address] [address] PCP - General Family Medicine 11/28/22 Jack Nava MD [address] [address] PCP - ACO Reach 08/29/24 documented as of this encounter
--- OUTSIDE RECORDS SUMMARY | 2025-02-03 09:52 | XMS_ITS | Encounter Summary ---
Author Organization [facility] Address [address] [place] [address] Care Team Providers Care Shuttle Operator Name Role Phone Jack York MD Primary Care Provider [phone] Jack York MD Unavailable [phone] Encounter Details Date Type Department Care Team (Late st Contact Info) Description 05/14/2024 Orders Only [facility] [address] [facility] [place] [address] Shelly, October, Mass of upper outer quadrant of left breast; Family history of breast cancer Social History Tobacco Use Types Packs/Day Years [...] week 08/01/2023 How often do you attend mormon or worship serv ices? Never 08/01/2023 Do you belong to any clubs o r organizations such as mormon groups, unions, fraternal or athletic groups, or [...] Recorded Patient Health Questionnaire-2 Score 0 02/26/2024 [facility] - Occupational [...] in a [facility] (including now)? No 08/01/2023 Comments No Sex [...] DERM [address] [place] [address] Angelica Lucas APRN-MAGICIAN HELPER [address] [place] [address] documented as of this encounter Visit Diagnoses Diagnosis Mass of upper outer quadrant of left breast Family history of breast cancer Family history of malignant neoplasm of breast documented in this encounter Care Teams Shuttle Operator Relationship Specialty Start Date End Date Jack York MD [address] [place] [address] (Fax) PCP - General Family Medicine 11/28/22 Jack York MD [address] [place] [address] (Fax) PCP - ACO Reach 08/29/24 documented as of this encounter
--- OUTSIDE RECORDS SUMMARY | 2025-02-03 09:52 | XMS_ITS | Encounter Summary ---
Author Organization [facility] Address [address] [place] [address] Care Team Providers Care Bioinformatics Engineer Name Role Phone Jack Nava MD Primary Care Provider [phone] Jack Nava MD Unavailable [phone] Encounter Details Date Type Department Care Team (Late st Contact Info) Description 11/23/2023 Clinisync Result Encounter [facility] External Department Unsolicited Jack Nava MD [address] [address] Social History Tobacco Use Types Packs/Day Years [...] week 08/01/2023 How often do you attend samaritan or jain serv ices? Never 08/01/2023 Do you belong to any clubs o r organizations such as samaritan groups, unions, fraternal or athletic groups, or [...] and heating? Not hard at all 08/01/2023 [facility] - Occupational Stress [...] place to sleep or slept in a halfway (including now)? No 08/01/2023 Comments No Sex [...] DERM [address] [place] [address] Angelica Lucas, ORACLE SQL DEVELOPER-STOREROOM KEEPER [address] [place] [address] documented as of this encounter Procedures Procedure Name Priority Date/Time Associated Diagnosis Comments US BREAST LT LIMITED 11/23/2023 10:54 AM EDT documented in this encounter Results * US BREAST LT LIMITED (11/23/2023 10:54 AM EDT) Anatomical Region Laterality Modality Other 11/23/2023 10:5 4 AM EDT Narrative 11/23/2023 10:55 AM EDT [address] [address] Ultrasound Report Signed Patient: YO VERA MR#: [id number] : 1955 Acct:[id number] Age/Sex: 68 / F ADM Date: 11/23/23 Loc: MAMMO Attending Dr: JACK NAVA Ordering Physician: JACK NAVA Date of Service: 11/23/23 Procedure(s): US breast LT limited Accession Number(s): [id number] cc: JACK NAVA Patient Name: YO VERA MR#: [id number] : 1955 Exam Date: 11/23/2023 Ordering Doctor: [...] pancreas cancer at age 70. LOCATION: [facility] BREAST COMPOSITION: The breasts are heterogeneously dense,which may obscure small masses. FINDINGS: DIAGNOSTIC CATEGORY 2--BENIGN FINDING. NO CHANGE FROM COMPARISON. The breasts are stable in size and overall fibroglandular configuration. Scattered benign-appearing calcifications are present. Scattered benign-appearing lymph nodes are present. RIGHT BREAST: No significant suspicious finding. LEFT BREAST: No significant suspicious finding. Clio marker indicates a palpable mass upper-outer quadrant, [...] Signed By: 11/23/23 1055 DD/ 1054 TD/TT: Fire Hydrant Operator: Procedure Note Radiology, Radiologist, - 11/23/2023 [place] [address] Ultrasound Report Signed Patient: YO VERA MMR#: [id number] : 7Acct:[id number] Age/Sex: 68 / FADM Date: 11/23/23 Loc: MAMMO Attending Dr: JACK NAVA Ordering Physician: JACK NAVA Date of Service: 11/23/23 Procedure(s): US breast LT limited Accession Number(s): [id number] cc: JACK NAVA Patient Name: YO VERA MR#: [id number] : 1955 Exam Date: 11/23/2023 Ordering Doctor: [...] pancreas cancer at age 70. LOCATION: [facility] BREAST COMPOSITION: The breasts are heterogeneously dense,which may obscure small masses. FINDINGS: DIAGNOSTIC CATEGORY 2--BENIGN FINDING. NO CHANGE FROM COMPARISON. The breasts are stable in size and overall fibroglandular configuration. Scattered benign-appearing calcifications are present. Scattered benign-appearing lymph nodes are present. RIGHT BREAST: No significant suspicious finding. LEFT BREAST: No significant suspicious finding. Clio markerindicates a palpable mass upper-outer quadrant, mid [...] M.D. Signed By:11/23/23 1055 DD/ 1054 TD/TT: Fire Hydrant Operator: Jack Nava MD [facility] Final Resu lt documented in this encounter Visit Diagnoses Not on filedocumented in this encounter Care Teams Bioinformatics Engineer Relationship Specialty Start Date End Date Jack Nava MD [address] [address] PCP - General Family Medicine 11/28/22 Jack Nava MD [address] [address] PCP - ACO Reach 08/29/24 documented as of this encounter
--- OUTSIDE RECORDS SUMMARY | 2025-02-03 09:52 | XMS_ITS | Clinical Summary ---
Author Organization [facility] Address [address] [place] [address] Phone Care Team Providers Care Solar Sales Representative And Assessor Name Role Phone Unavailable Primary Care Provider Unavailabl e Allergies No known active allergies Medications ALPRAZolam (Xanax) 0.25 mg tablet Take 1 tablet (0.25 mg) by mouth 3 times a day as needed. 02/26/2024 Active colestipol (Colestid) 1 gram tablet Take 1-2 tablets (1-2 g) by mouth 3 times a day as needed. 08/14/2024 Active estradiol (Estrace) 1 mg tablet Take 1 tablet (1 mg) by mouth once daily. 08/14/2024 5 Active omeprazole (PriLOSEC) [address] capsule Take 1 capsule (20 mg) by mouth. 08/14/2024 6 Active Social History Tobacco Use Types Packs/Day Years Used Date Smoking Tobacco: Former Cigarettes Q uit: 1994 Smokeless Tobacco: Never Tobacco Cessation:Counseling Given: Not Answered Alcohol Use Standard Drinks/Week Comments Yes 0 (1 standard drink = 0.6 oz pur e alcohol) Occasional Comments No Sex and Gender Information Value Date Recorded Sex Assigned at Female 10/30/2023 11:03 AM EDT Legal Sex Female 3:52 PM EDT Gender Identity Female 10/30/2023 11:03 AM EDT Sexual Orientation Straight 10/30/2023 11 :03 AM EDT Last Filed Vital Signs Vital Sign Reading Time Taken Comments Blood Pressure 115/58 08/29/2024 9:30 AM EST Pulse 64 08/29/2024 9:30 AM EST Temperature 36.5 C (97.7 F) 08/29/2024 9:30 AM EST Respiratory Rate 16 08/29/2024 9:30 AM EST Oxygen Saturation 98% 08/29/2024 9:30 AM EST Inhaled Oxygen Concentration - - Weight 61.7 kg (136 lb) 08/29/2024 7:31 AM EST Height 167.6 cm (5' 6 ) 08/29/2024 7:31 AM EST Body Mass Index 21.95 08/29/2024 7:31 AM EST Plan of Treatment Health Maintenance Due Date Last Done Comments Bone Density Scan 1956 CT Colonography 1955 Colonoscopy 1955 Colorectal Cancer Screening 1955 FIT-DNA (Cologuard) 1955 FIT 1955 Lipid Panel 1955 Medicare Annual Wellness Visit (AWV) 1955 Sigmoidoscopy 1955 Hepatitis C Screening 1974 DTaP/Tdap/Td Vaccines (1 - Tdap) 1978 Pneumococcal Vaccine (1 of 1 - PCV) 2006 Zoster Vaccines (1 of 2) 2006 COVID-19 Vaccine (3 - ) 03/23/2024 06/07/2021, 09/29/2020 Mammogram 11/22/2024 11/23/2023, 01/21, 02/14/2022, Additional history exists Influenza Vaccine (#1) 2025 RSV High Risk: (Elderly (60+) or Population) (1 - 1-dose 75+ series) 2031 HIB Vaccines Aged Out No longer eligi ble based on patient's age to complete this topic HPV Vaccines (No Doses Required) Completed Hepatitis A Vaccines Aged Out No long er eligible based on patient's age to complete this topic Hepatitis B Vaccines Aged Out No long er eligible based on patient's age to complete this topic IPV Vaccines Aged Out No longer eligi ble based on patient's age to complete this topic Meningococcal Vaccine Aged Out No keiry roxana eligible based on patient's age to complete this topic Rotavirus Vaccines Aged Out No longer eligible based on patient's age to complete this topic Insurance MEDICARE PART A AND B MEDIC[place] [address] [place] [address]
--- NOTE | 2025-02-03 10:00 | MM_ITS ---
Patient Name: LILI VERA MR#: [id number] : 1955 Exam Date: 02/03/2025 Ordering Doctor: DR ABDIRAHMAN NAVA . RADIOLOGY REPORT PROCEDURE: MM TOMOSYNTHESIS SCREENING BI COMPARISON: MM TOMOSYNTHESIS DIAGNOSTIC BI, 11/23/2023. MM TOMOSYNTHESIS SCREENING BI, 02/22/2023. MG MAMM SCREEN 3D VICKEY CAD, 02/14/2022. MG MAMM VICKEY SCRN W CAD DIG, 09/03/2013. INDICATIONS: Screening Calculator Name NCI Breast Cancer Risk Assessment Tool 5 Year Breast Cancer Risk 3.00% Lifetime Breast Cancer Risk 9.50% Personal Breast Cancer No Personal Ovarian Cancer No Treatments None Family Cancers Mother with breast cancer at age 71; Sister with pancreas cancer at age 66; Father with pancreas cancer at age 59; Sister with bladder cancer at age 62; Sister with pancreas cancer at age ~65; Brother with pancreas cancer at age 69. LOCATION: [facility] BREAST COMPOSITION: The breasts are heterogeneously dense, which may obscure small masses. FINDINGS: RIGHT BREAST: No significant suspicious finding. Left breast: No significant suspicious findings. DIAGNOSTIC CATEGORY 1--NEGATIVE. RECOMMENDATIONS: ROUTINE MAMMOGRAM AND CLINICAL EVALUATION IN 12 MONTHS. PLEASE NOTE: A NORMAL MAMMOGRAM DOES NOT EXCLUDE THE POSSIBILITY OF BREAST CANCER. A CLINICALLY SUSPICIOUS PALPABLE LUMP SHOULD BE BIOPSIED. Dictated by: Zhang Capellan DO on 02/03/2025 at 12:29 Approved by: Zhang Capellan DO on 02/03/2025 at 12:31
--- OUTSIDE RECORDS SUMMARY | 2025-02-03 10:06 | XMS_ITS | CCD ---
Author Organization [facility] Care Team Providers Care Tow Mate Name Role Phone ELIJAH ., DR GARY Primary Care Unavailable HEMEYER ., DR GARY Admitting Unavailable HEMEYER ., DR GARY Attending Unavailable HEMEYER ., DR GARY Consulting Unavailable HEMEYER ., DR GARY Admitting Unavailable HEMEYER ., DR GARY Attending Unavailable HEMEYER ., DR GARY Consulting Unavailable HEMEYER ., DR GARY Primary Care Unavailable TERRY, DR KENNEDY Mcginnis Consulting Unavailable Unavailable Primary Care Provider Unavailrhona e Jack Nava MD Primary Care Provider Jack Nava MD Primary Care Provider Jack Nava MD Primary Care Provider WYATT CROWDER Attending Unavailable LIN ARCHER Referring Unavailable LIN ARCHER Attending Unavailable Jack Nava MD Unavailable JACK NAVA Attending Unavailable JACK NAVA Attending Unavailable JACK NAVA Attending Unavailable JACK NAVA Attending Unavailable JACK NAVA Attending Unavailable JACK NAVA Attending Unavailable Allergies Allergy Classification Reported Allergen(s) Allergy Type Date of Onset Reaction(s) Facility (20 sources) Acetaminophen Drug Allergy 3 [facility] Healthcare (20 sources) Codeine Drug Allergy 3 [facility] (20 sources) Ketoprofen Drug Allergy 3 [facility] Healthcare (1 source) ALLERGIES NOT ON FILE; Translations: [ALLERGIES NOT ON FILE] Propensity to adverse reactions (disorder) [facility] Medications Current Medications Medication Drug Class(es) Dates Sig (Normalized) Sig (Original) ALPRAZolam 0.25 mg oral tablet (20 sources) Benzodiazepine Start: 02-26-2024 End: 02-26-2024 take 1 tablet by mouth three times daily as needed for anxiety ALPRAZolam (Xanax) 0.25 MG tablet Indications: Generalized anxiety disorder Take 1 tablet (0.25 mg) by mouth 3 (three) times a day as needed for anxiety for up to 10 days 30 tablet 02/26/2024 Active colestipol hydrochloride 1000 mg oral tablet (20 sources) Bile Acid Sequestrant Start: 02-05-2024 End: 03-29-2025 take 1-2 tablets by mouth three times daily as needed for diarrhea colestipol (Colestid) 1 g tablet Indications: Irritable bowel syndrome with both constipation and diarrhea Take 1-2 tablets (1-2 g) by mouth 3 (three) times a day as needed (diarrhea) 100 tablet 1 12/29/2024 03/29/2025 Active cyclobenzaprine hydrochloride 5 mg oral tablet [...] 03/23/2024 Active estradiol 1 mg oral tablet (20 sources) Estrogen Start: 12-29-2024 End: 06-27-2025 take 0.5 tablet by mouth once daily estradiol (Estrace) 1 MG tablet Indications: Perimenopausal disorder Take 0.5 tablets (0.5 mg) by mouth Daily 90 tablet 12/29/2024 06/27/2025 Active Start: 02-05-2024 End: 02-10-2025 take 1 tablet by mouth once daily estradiol (Estrace) 1 MG tablet Indications: Perimenopausal disorder Take 1 tablet (1 mg) by mouth Daily 90 tablet 1 08/14/2024 12/29/2024 Discontinued (Reorder) mometasone furoate 0.001 mg/mg topical ointment (13 sources) Corticosteroid Start: 08-14-2024 End: 11-17-2024 mometasone (Elocon) 0.1 % ointment Indications: Perioral dermatitis Apply topically Daily As needed for inflamed lips 15 g 2 08/19/2024 Active nabumetone 750 mg oral tablet (4 [...] omeprazole 20 mg delayed release oral capsule (20 sources) Proton Pump Inhibitor Start: 08-02-2023 End: 08-14-2025 take 1 capsule by mouth before mealtime omeprazole (PriLOSEC) [address] capsule Indications: Gastroesophageal reflux disease without esophagitis Take 1 capsule (20 mg) by mouth in the morning. Take before meals. Do not crush or chew. 180 capsule 12/29/2024 06/27/2025 Active rosuvastatin calcium 5 mg oral tablet (1 source) HMG-CoA Reductase Inhibitor Start: 01-07-2025 End: 02-06-2025 take 1 tablet by mouth in the evening rosuvastatin (Crestor) 5 MG tablet Indications: Elevated cholesterol Take 1 tablet (5 mg) by mouth in the evening 30 tablet 01/07/2025 02/06/2025 Active Problems Active Problems Problem Classification Problem Date Documented Da te Episodic/Chronic Acute and unspecified renal failure (2 sources) Acute renal failure syndrome; Translations: [Acute kidney failure, unspecified] 08-25-2024 Episodic Anxiety disorders (20 sources) Generalized anxiety disorder; Translations: [Generalized anxiety disorder] Onset: 3 02-15-2023 Chronic Chronic kidney disease (17 sources) Chronic kidney disease stage 3A ; Translations: [Stage 3a chronic kidney disease (CKD) ([facility])] Onset: 5 08-19-2024 Chronic Disorders of lipid metabolism (5 sources) Pure hypercholesterolemia, unspecified; Translations: [Serum cholesterol raised ] Onset: 3 08-19-2024 Chronic Esophageal disorders (20 sources) Gastroesophageal reflux disease without esophagitis; Translations: [Gastro-esophageal reflux disease without esophagitis] Onset: 4 04-30-2024 Chronic Menopausal disorders (20 sources) Perimenopausal disorder; Translations: [Unspecified menopausal and perimenopausal disorder] Onset: 3 02-15-2023 Chronic Nonspecific chest pain (2 sources) Chest pain; Translations: [Chest pain, unspecified] 04-30-2024 Episodic Other gastrointestinal disorders (20 sources) Irritable bowel syndrome; Translations: [Irritable bowel syndrome without diarrhea] Onset: 3 02-15-2023 Chronic Other inflammatory condition of skin (3 sources) Perioral dermatitis; Translations: [Perioral dermatitis] 08-14-2024 Chronic Other liver diseases (1 source) Abnormal levels of other serum enzymes; Translations: [ABNORMAL LEVELS OTHER SERUM ENZYMES] Onset: 3 Episodic Other screening for suspected conditions (not mental disorders or infectious disease) (10 sources) Encounter for screening for lipoid disorders; Translations: [Encounter for screening for diabetes mellitus] Onset: 2 Episodic Residual codes; unclassified (2 sources) Other specified personal risk factors, not elsewhere classified; Translations: [Other specified personal risk factors, not elsewhere classified] Onset: 5 Episodic Residual codes; unclassified (2 sources) Family history of malignant neoplasm of digestive organs; Translations: [Family history of malignant neoplasm of digestive organs] Onset: 5 Episodic Spondylosis; intervertebral disc disorders; other back problems (20 sources) Degeneration of cervical intervertebral disc; Translations: [Other cervical disc degeneration, unspecified cervical region] Onset: 3 02-15-2023 Chronic Past or Other Problems Problem Classification [...] ORGN/SYS] Onset: 02-17-2022 Episodic Residual codes; unclassified (20 sources) Family history of malignant neoplasm of pancreas; Translations: [Family history of malignant neoplasm of digestive organs] Onset: 08-02-2023 11-04-2023 Episodic Residual codes; unclassified (20 sources) Acquired absence of cervix and uterus; Translations: [Acquired absence of both cervix and uterus] Onset: 02-15-2023 02-15-2023 Episodic Residual codes; unclassified (20 sources) Bilateral acquired absence of ovary; Translations: [Acquired absence of ovaries, bilateral] Onset: 02-15-2023 02-15-2023 Episodic Residual codes; unclassified (20 sources) At risk of malignancy; Translations: [Other specified personal risk factors, not elsewhere classified] Onset: 08-02-2023 08-02-2023 Episodic Residual codes; unclassified (4 sources) Body mass index 20-24 - normal; Translations: [Body mass index (BMI) 22.0-22.9, adult] 02-20-2024 Episodic Sprains and strains (2 sources) Low back strain; Translations: [Strain of muscle, fascia and tendon of lower back, initial encounter] 03-13-2024 Episodic Results Test Name Value Interpretation Reference Range Facility ALL BASIC METABOLIC PANELon 11-20-2024 Anion gap [Moles/Vol] 12 mmol/L [facility] Calcium [Mass/Vol] 9.4 mg/dL 8.5 - 10. 1 mg/dL [facility] Chloride [Moles/Vol] 105 mmol/L 98 - 10 7 mmol/L [facility] CO2 [Moles/Vol] 29.5 mmol/L 21.0 - 32.0 mmol/L [facility] Creatinine [Mass/Vol] 0.94 mg/dL 0.55 - 1.02 mg/dL [facility] GFR/1.73 sq M.predicted CKD-EPI (S/P/Bld) [Vol rate/Area] >60 >=60 mL/min/1.73m 2 [facility] Glucose [Mass/Vol] 99 mg/dL 74 - 106 mg/dL [facility] Potassium [Moles/Vol] 4.5 mmol/L 3.5 - 5.1 mmol/L [facility] Sodium [Moles/Vol] 142 mmol/L 136 - 145 mmol/L [facility] TBH EGFR-NON AF SAMMARINESE 59 Low >=60 mL/min/1.73m 2 [facility] Urea nitrogen [Mass/Vol] 11 mg/dL 7.0 - 18.0 mg/dL [facility] Urea nitrogen/Creatinine [Mass ratio] 11.7 mg/mg [facility] ALL LIPID PROFILE (FASTING)o n 11-20-2024 CHOL HDL RATIO 2.1 [facility] Comment on above: 3.3 - 4.4 LOW RISK 4.4 - 7.1 AVERAGE RISK 7.1 - 11.0 MODERATE RISK >11.0 HIGH RISK Cholesterol [Mass/Vol] 232 mg/dL High NINF - 200 mg/dL [facility] Cholesterol in HDL [Mass/Vol] 108 mg/dL High 40 - 60 mg/dL [facility] Comment on above: > or =60 mg/dl - LOW CARDIOVASCULAR RISK <40 mg/dl - HIGH CARDIOVASCULAR RISK Magnesium [Mass/Vol] 110 mg/dL [facility] Comment on above: <100 mg/dl OPTIMAL 100-129 mg/dl NEAR OR ABOVE OPTIMAL 130-159 mg/dl BORDERLINE HIGH 160-189 mg/dl HIGH >190 mg/dl VERY HIGH Magnesium [Mass/Vol] 14.8 mg/dL [facility] Triglyceride [Mass/Vol] 74 mg/dL NINF - 150 mg/dL [facility] No Panel Informationon 11-20 Interpretation and review of laboratory results Abnormal [facility]OS[facility] ULTRAS[facility] (UPPER )on 08-29-2024 ENDOSCOPIC ULTRASOUND (UPPER) Table formatting from the original result was not included. Impression Limited endoscopic views of the esophagus, stomach and duodenum appeared normal. The parenchyma of the liver appeared normal. The parenchyma was visualized in the left lobe of the liver. The hepatic ducts appeared normal. The bile duct appeared normal. The gallbladder was not visualized however surgical clips were noted in the region consistent with prior cholecystectomy. The parenchyma was visualized in the entire pancreas and appeared to have a normal salt and pepper appearance. The pancreatic duct appeared normal. Of note, there was a region measuring 3mm in the proximal body of pancreas near the portal vein confluence of prominent side branches suggestive of an early or developing sidebranch IPMN. No worrisome features. Findings Limited endoscopic views of the esophagus, stomach and duodenum appeared normal. The parenchyma of the liver appeared normal. The parenchyma was visualized in the left lobe of the liver. The hepatic ducts appeared normal. The bile duct appeared normal. The bile duct measured 6 mm at the distal end and 6 mm at the middle. The gallbladder was not visualized. Clips visualized in the region of the gallbladder The parenchyma was visualized in the entire pancreas and appeared to have a normal salt and pepper appearance. The pancreatic duct appeared normal and measured 2 mm at the head, 2 mm at the body and 1 mm at the tail. There was a region with prominent side branches in the body of the pancreas nearby the confluence of the portal vein suggestive of an early or developing IPMN. This measured 3 mm. Recommendation Continue pancreatic surveillance annually Indication Family history of malignant neoplasm of pancreas, At high risk for pancreatic cancer Staff Staff Role Wyatt Crowder MD Proceduralist Medications See Anesthesia Record. Preprocedure A history and physical has been performed, and patient medication allergies have been reviewed. The patient's tolerance of previous anesthesia has been reviewed. The risks and benefits of the procedure and the sedation options and risks were discussed with the patient. All questions were answered and informed consent obtained. Details of the Procedure The patient underwent monitored anesthesia care, which was administered by an anesthesia professional. The patient's blood pressure, heart rate, level of consciousness, oxygen, respirations, ECG and ETCO2 were monitored throughout the procedure. The scope was introduced through the mouth and advanced to the second part of the duodenum. Ultrasound examination of the gastric and duodenal regions was performed using a linear scope. The patient experienced no blood loss. The procedure was not difficult. The patient tolerated the procedure well. There were no apparent adverse events. Events Procedure Events Event Event Time ENDO SCOPE IN TIME 08/29/2024 8:26 AM ENDO SCOPE OUT TIME 08/29/2024 8:37 AM Specimens No specimens collected Procedure Location [facility] [address] [facility] [id number] Referring Provider Lin Archer PA-C Procedure Provider Wyatt Crowder MD [facility] Endoscopic Ultrasound (Upper )on 08-29-2024 Table formatting from the original result was not included. Impression Limited endoscopic views of the esophagus, stomach and duodenum appeared normal. The parenchyma of the liver appeared normal. The parenchyma was visualized in the left lobe of the liver. The hepatic ducts appeared normal. The bile duct appeared normal. The gallbladder was not visualized however surgical clips were noted in the region consistent with prior cholecystectomy. The parenchyma was visualized in the entire pancreas and appeared to have a normal salt and pepper appearance. The pancreatic duct appeared normal. Of note, there was a region measuring 3mm in the proximal body of pancreas near the portal vein confluence of prominent side branches suggestive of an early or developing sidebranch IPMN. No worrisome features. Findings Limited endoscopic views of the esophagus, stomach and duodenum appeared normal. The parenchyma of the liver appeared normal. The parenchyma was visualized in the left lobe of the liver. The hepatic ducts appeared normal. The bile duct appeared normal. The bile duct measured 6 mm at the distal end and 6 mm at the middle. The gallbladder was not visualized. Clips visualized in the region of the gallbladder The parenchyma was visualized in the entire pancreas and appeared to have a normal salt and pepper appearance. The pancreatic duct appeared normal and measured 2 mm at the head, 2 mm at the body and 1 mm at the tail. There was a region with prominent side branches in the body of the pancreas nearby the confluence of the portal vein suggestive of an early or developing IPMN. This measured 3 mm. Recommendation Continue pancreatic surveillance annually Indication Family history of malignant neoplasm of pancreas, At high risk for pancreatic cancer Staff Staff Role Wyatt Crowder MD Proceduralist Medications See Anesthesia Record. Preprocedure A history and physical has been performed, and patient medication allergies have been reviewed. The patient's tolerance of previous anesthesia has been reviewed. The risks and benefits of the procedure and the sedation options and risks were discussed with the patient. All questions were answered and informed consent obtained. Details of the Procedure The patient underwent monitored anesthesia care, which was administered by an anesthesia professional. The patient's blood pressure, heart rate, level of consciousness, oxygen, respirations, ECG and ETCO2 were monitored throughout the procedure. The scope was introduced through the mouth and advanced to the second part of the duodenum. Ultrasound examination of the gastric and duodenal regions was performed using a linear scope. The patient experienced no blood loss. The procedure was not difficult. The patient tolerated the procedure well. There were no apparent adverse events. Events Procedure Events Event Event Time ENDO SCOPE IN TIME 08/29/2024 8:26 AM ENDO SCOPE OUT TIME 08/29/2024 8:37 AM Specimens No specimens collected Procedure Location [facility] [address] [facility] [id number] Referring Provider Lin Archer PA-C Procedure Provider Wyatt Crowder MD [facility] Work Phone: [facility] Work Phone: Radiology Study observation (narrative) [facility] Work Phone: ALL LIPID PROFILE (FASTING)o n 08-19-2024 CHOL HDL RATIO 2.3 [facility] hcare Comment on above: 3.3 - 4.4 LOW RISK 4.4 - 7.1 AVERAGE RISK 7.1 - 11.0 MODERATE RISK >11.0 HIGH RISK Cholesterol [Mass/Vol] 239 mg/dL High NINF - 200 mg/[facility] Cholesterol in HDL [Mass/Vol] 102 mg/dL High 40 - 60 mg/dL [facility] Comment on above: > or =60 mg/dl - LOW CARDIOVASCULAR RISK <40 mg/dl - HIGH CARDIOVASCULAR RISK Magnesium [Mass/Vol] 104 mg/dL [facility] Comment on above: <100 mg/dl OPTIMAL 100-129 mg/dl NEAR OR ABOVE OPTIMAL 130-159 mg/dl BORDERLINE HIGH 160-189 mg/dl HIGH >190 mg/dl VERY HIGH Magnesium [Mass/Vol] 33.6 mg/dL [facility] Triglyceride [Mass/Vol] 168 mg/dL High NINF - 150 mg/dL [facility] CMP (CMP) (FOR REMOTE FH C USE)on 08-19-2024 Albumin [Mass/Vol] 3.4 g/dL 3.4 - 5.0 g/dL [facility] ALBUMIN GLOBULIN RATIO 1.1 [facility] ALP [Catalytic activity/Vol] 35 U/L Low 46 - 116 U/L [facility] ALT [Catalytic activity/Vol] 25 U/L 14 - 59 U/L [facility] Anion gap [Moles/Vol] 10.3 mmol/L [facility] AST [Catalytic activity/Vol] 17 U/L 15 - 37 U/L [facility] Bilirubin [Mass/Vol] 0.8 mg/dL 0.2 - 1 .0 mg/dL [facility] Calcium [Mass/Vol] 9.1 mg/dL 8.5 - 10. 1 mg/dL [facility] Chloride [Moles/Vol] 104 mmol/L 98 - 10 7 mmol/L [facility] CO2 [Moles/Vol] 31 mmol/L 21.0 - 32.0 mmol/L [facility] Creatinine [Mass/Vol] 1.09 mg/dL High 0.55 - 1.02 mg/dL [facility] GFR/1.73 sq M.predicted CKD-EPI (S/P/Bld) [Vol rate/Area] >60 >=60 mL/min/1.73m 2 [facility] Globulin (S) [Mass/Vol] 3.2 g/dL [facility] Glucose [Mass/Vol] 98 mg/dL 74 - 106 mg/dL NO [facility] Potassium [Moles/Vol] 4.3 mmol/L 3.5 - 5.1 mmol/L [facility] Protein [Mass/Vol] 6.6 g/dL 6.4 - 8.2 g/dL NO [facility] Sodium [Moles/Vol] 141 mmol/L 136 - 145 mmol/L [facility] TBH EGFR-NON AF SAMMARINESE 50 Low >=60 mL/min/1.73m 2 [facility] Urea nitrogen [Mass/Vol] 9 mg/dL 7.0 - 18.0 mg/dL [facility] Urea nitrogen/Creatinine [Mass ratio] 8.3 mg/mg [facility] No Panel Informationon 08-19 Interpretation and review of laboratory results Abnormal [facility] Urinal[facility] macro (dipstick) panel (U)on 03-13-2024 Bilirubin, UA Negative Negative - 4(70) +++ mg/dL [facility] Blood, UA Negative Negative - 50 Se/mcL [facility] Clarity, UA Clear [facility] re Color, UA Colorless [facility] e Glucose, UA Negative Negative - 1999(110) ++++ mg/dL [facility] Interpretation and review of laboratory results Normal [facility] Ketones, UA Negative Negative - 160(16) ++++ mg/dL [facility] Leukocytes, UA Negative Negative - 500+++ Tate/mcL [facility] Nitrite, UA Negative Negative - Positive [facility] pH, UA 6.0 5 - 9 [facility] e Protein, UA Negative Negative - 1999(20) ++++ mg/dL [facility] Spec Grav, UA 1.015 1 - 1.03 [facility] Urobilinogen, UA 0.2 0.2 - 12 mg/dL [facility] LIPID PROFILEon 10-12-2022 CHOL-HDL RATIO NORM SEE BELOW [facility] Comment on above: Result Comment: 3.3 - 4.4 LOW RISK 4.4 - 7.1 AVERAGE RISK 7.1 - 11.0 MODERATE RISK >11.0 HIGH RISK Performed By: #### C MP, LIPID #### [facility] [address] [address] [address] Bhargavi Vogel Cholesterol [Mass/Vol] 229 mg/dL Critically high <=200 [facility] Comment on above: Performed By: #### C MP, LIPID #### [facility] [address] [address] [address] Bhargavi Vogel Cholesterol in HDL [Mass/Vol] 101 mg/dL Critically high 40-60 [facility] Comment on above: Performed By: #### C MP, LIPID #### [facility] [address] [place] [address] Dr. Bhargavi Vogel Cholesterol in LDL [Mass/Vol] 112.4 mg/dL Normal [facility] Comment on above: Performed By: #### C MP, LIPID #### [facility] [address] [place] [address] Dr. Bhargavi Vogel Cholesterol.total/Ch olesterol in HDL [Mass ratio] 2.3 {ratio} Normal [facility] Comment on above: Performed By: #### C MP, LIPID #### [facility] [address] [place] [address] Dr. Bhargavi Vogel HDL NORMAL > or = 60 mg/dl - LOW CARDIOVASCULAR RISK <40 mg/dl - HIGH CARDIOVASCULAR RISK Normal [facility] Comment on above: Performed By: #### C MP, LIPID #### [facility] [address] [place] [address] Dr. Bhargavi Vogel LDL CALC NORMAL SEE BELOW Normal [facility] Comment on above: Result Comment: <100 mg/dl OPTIMAL 100 - 129 mg/dl NEAR OR ABOVE OPTIMAL 130 - 159 mg/dl BORDERLINE HIGH 160 - 189 mg/dl HIGH >190 mg/dl VERY HIGH Performed By: #### C MP, LIPID #### [facility] [address] [address] [address] Bhargavi Vogel Triglyceride [Mass/Vol] 78 mg/dL Normal <=150 [facility] Comment on above: Performed By: #### C MP, LIPID #### [facility] [address] [address] [address] Bhargavi Vogel VLDL CALC 15.6 mg/dL Normal [facility] Comment on above: Performed By: #### C MP, LIPID #### [facility] [address] [address] [address] Bhargavi Vogel PROF 14(COMP METB)on 023 Albumin [Mass/Vol] 3.8 g/dL Normal 3.4-5.0 [facility] Comment on above: Performed By: #### C MP, LIPID #### [facility] [address] [place] [address] Dr. Bhargavi Vogel Albumin/Globulin [Mass ratio] 1.3 {ratio} Normal [facility] Comment on above: Performed By: #### C MP, LIPID #### [facility] [address] [place] [address] Dr. Bhargavi Vogel ALP [Catalytic activity/Vol] 33 U/L Critically low 46-116 [facility] Comment on above: Performed By: #### C MP, LIPID #### [facility] [address] [place] [address] Dr. Bhargavi Vogel ALT [Catalytic activity/Vol] 26 U/L Normal 14-59 [facility] Comment on above: Performed By: #### C MP, LIPID #### [facility] [address] [address] [address] Bhargavi Vogel Anion gap [Moles/Vol] 10.7 mmol/L Normal [facility] Comment on above: Performed By: #### C MP, LIPID #### [facility] [address] [address] [address] Bhargavi Vogel AST [Catalytic activity/Vol] 21 U/L Normal 15-37 [facility] Comment on above: Performed By: #### C MP, LIPID #### [facility] [address] [address] [address] Bhargavi Vogel Bilirubin [Mass/Vol] 0.6 mg/dL Normal 0.2-1.0 [facility] Comment on above: Performed By: #### C MP, LIPID #### [facility] [address] [address] [address] Bhargavi Vogel Calcium [Mass/Vol] 9.2 mg/dL Normal 8.5-10.1 [facility] Comment on above: Performed By: #### C MP, LIPID #### [facility] [address] [place] [address] Dr. Bhargavi Vogel Chloride [Moles/Vol] 106 mmol/L Normal 98-107 [facility] Comment on above: Performed By: #### C MP, LIPID #### [facility] [address] [place] [address] Dr. Bhargavi Vogel CO2 [Moles/Vol] 28.6 mmol/L Normal 21.0-32.0 [facility] Comment on above: Performed By: #### C MP, LIPID #### [facility] [address] [place] [address] Dr. Bhargavi Vogel Creatinine [Mass/Vol] 0.75 mg/dL Normal 0.55-1.02 [facility] Comment on above: Performed By: #### C MP, LIPID #### [facility] [address] [place] [address] Dr. Bhargavi Vogel EGFR-AF SAMMARINESE >60 Normal >=60 [facility] Comment on above: Performed By: #### C MP, LIPID #### [facility] [address] [place] [address] Dr. Bhargavi Vogel EGFR-NON AF SAMMARINESE >60 Normal >=60 [facility] Comment on above: Performed By: #### C MP, LIPID #### [facility] [address] [place] [address] Dr. Bhargavi Vogel Globulin (S) [Mass/Vol] 3.0 g/dL Normal [facility] Comment on above: Performed By: #### C MP, LIPID #### [facility] [address] [address] [address] Bhargavi Vogel Glucose [Mass/Vol] 101 mg/dL Normal 74-106 [facility] Comment on above: Performed By: #### C MP, LIPID #### [facility] [address] [address] [address] Bhargavi Vogel Potassium [Moles/Vol] 4.3 mmol/L Normal 3.5-5.1 [facility] Comment on above: Performed By: #### C MP, LIPID #### [facility] [address] [address] [address] Bhargavi Vogel Protein [Mass/Vol] 6.8 g/dL Normal 6.4-8.2 [facility] Comment on above: Performed By: #### C MP, LIPID #### [facility] [address] [address] [address] Bhargavi Vogel Sodium [Moles/Vol] 141 mmol/L Normal 136-145 [facility] Comment on above: Performed By: #### C MP, LIPID #### [facility] [address] [address] [address] Bhargavi Vogel Urea nitrogen [Mass/Vol] 15.0 mg/dL Normal 7.0-18.0 [facility] Comment on above: Performed By: #### C MP, LIPID #### [facility] [address] [address] [address] Bhargavi Vogel Urea nitrogen/Creatinine [Mass ratio] 20.0 mg/mg Normal [facility] Comment on above: Performed By: #### C MP, LIPID #### [facility] [address] [address] [address] Bhargavi Vogel MG MAMM SCREEN 3D VICKEY CADon 02-14-2022 MG MAMM SCREEN 3D VICKEY CAD Patient: LILI VERA Exam Date: 02/14/2022 : 1955 Gender:F Ordering : DR JACK NAVA . Admission #: [id number] Family : Order #: [id number] CLICK HERE TO VIEW EXAM RADIOLOGY REPORT [...] cancer at age 60. LOCATION: [facility] BREAST COMPOSITION: Heterogeneously dense,which may obscure small [...] on 02/14/2022 at 16:06 Normal [facility] Vital Signs Date Time Vital Sign Value Performing Clinician Facility 12-29-2024 09:25-0400 Body height 170.2 cm Jack Nava MD Work Phone: [facility] 12-29-2024 09:25-0400 Body mass index (BMI) [Ratio] 22.71 kg/m2 Jack Nava MD Work Phone: [facility] 12-29-2024 09:25-0400 Body weight 65.77 kg Jack Nava MD Work Phone: [facility] 12-29-2024 09:25-0400 Heart rate 59 /min Jack Nava MD Work Phone: [facility] 12-29-2024 09:25-0400 SaO2% (BldA) [Mass fraction] 99 % Jack Nava MD Work Phone: [facility] 08-29-2024 09:30-0500 Body temperature 97.7 [degF] Wyatt Crowder MD Work Phone: [facility] 08-29-2024 09:30-0500 Diastolic blood pressure 58 mm[Hg] Wyatt Crowder MD Work Phone: [facility] 08-29-2024 09:30-0500 Heart rate 64 /min Wyatt Crowder MD Work Phone: [facility] 08-29-2024 09:30-0500 Respiratory rate 16 /min Wyatt Crowder MD Work Phone: [facility] 08-29-2024 09:30-0500 SaO2% (BldA) [Mass fraction] 98 % Wyatt Crowder MD Work Phone: [facility] 08-29-2024 09:30-0500 Systolic blood pressure 115 mm[Hg] Wyatt Crowder MD Work Phone: [facility] 08-29-2024 07:31-0500 Body height 167.6 cm Wyatt Crowder MD Work Phone: [facility] 08-29-2024 07:31-0500 Body mass index (BMI) [Ratio] 21.95 kg/m2 Wyatt Crowder MD Work Phone: [facility] 08-29-2024 07:31-0500 Body weight 61.69 kg Wyatt Crowder MD Work Phone: [facility] 08-25-2024 09:21-0500 Body height 170.2 cm Jack Nava MD Work Phone: [facility] 08-25-2024 09:21-0500 Body mass index (BMI) [Ratio] 22.71 kg/m2 Jack Nava MD Work Phone: [facility] 08-25-2024 09:21-0500 Body weight 65.77 kg Jack Nava MD Work Phone: [facility] 08-14-2024 10:19-0500 Body height 170.2 cm Jack Nava MD Work Phone: [facility] 08-14-2024 10:19-0500 Body mass index (BMI) [Ratio] 22.71 kg/m2 Jack Nava MD Work Phone: [facility] 08-14-2024 10:19-0500 Body weight 65.77 kg Jack Nava MD Work Phone: [facility] 04-16-2024 14:46-0400 Body height 170.2 cm Jack Nava MD Work Phone: [facility] 04-16-2024 14:46-0400 Body mass index (BMI) [Ratio] 22.71 kg/m2 Jack Nava MD Work Phone: [facility] 04-16-2024 14:46-0400 Body weight 65.77 kg Jack Nava MD Work Phone: [facility] 04-16-2024 14:46-0400 Heart rate 87 /min Jack Nava MD Work Phone: [facility] 04-16-2024 14:46-0400 SaO2% (BldA) [Mass fraction] 94 % Jack Nava MD Work Phone: [facility] 03-13-2024 14:46-0400 Body height 170.2 cm Jack Nava MD Work Phone: [facility] 03-13-2024 14:46-0400 Body mass index (BMI) [Ratio] 22.71 kg/m2 Jack Nava MD Work Phone: [facility] 03-13-2024 14:46-0400 Body weight 65.77 kg Jack Nava MD Work Phone: [facility] 02-26-2024 08:53-0400 Body height 170.2 cm Jack Nava MD Work Phone: [facility] 02-26-2024 08:53-0400 Body mass index (BMI) [Ratio] 22.71 kg/m2 Jack Nava MD Work Phone: [facility] 02-26-2024 08:53-0400 Body weight 65.77 kg Jack Nava MD Work Phone: [facility] Encounters Encounter Date Encounter Type Care Provider Facility Start: 01-07-2025 End: 01-07-2025 Telephone encounter Minda Shelly CARDENAS [facility] Comment on above: Care Coordination Start: 12-29-2024 End: 12-29-2024 Bamboo flowsheet Jack Nava MD Work Phone: [facility] Start: 12-29-2024 End: 12-29-2024 Bamboo flowsheet Jack Nava MD Work Phone: [facility] Start: 12-29-2024 End: 12-29-2024 Office outpatient visit 25 minutes Jack Nava MD Work Phone: [facility] Comment on above: Generalized anxiety disorder (CMS/HCC) (Primary Dx); Irritable bowel syndrome with both constipation and diarrhea; Gastroesophageal reflux disease without esophagitis; Perimenopausal disorder; Acquired absence of both ovaries; Acquired absence of both cervix and uterus; Stage 2 chronic kidney disease Start: 12-29-2024 End: 12-29-2024 ambulatory JACK NAVA Not Available Start: 11-20-2024 End: 11-20-2024 Clinisync Result Encounter Jack Nava MD Work Phone: [facility] Unsolicited Start: 11-20-2024 End: 11-20-2024 Clinisync Result Encounter Jack Nava MD Work Phone: [facility] Start: 08-29-2024 End: 08-29-2024 Subsequent hospital visit by physician Wyatt Crowder MD Work Phone: [facility] Comment on above: At high risk for west creatic cancer; Family history of malignant neoplasm of pancreas Start: 08-29-2024 End: 08-29-2024 ambulatory WYATT [facility] Start: 08-25-2024 End: 08-25-2024 Bamboo flowsheet Jack Nava MD Work Phone: [facility] Start: 08-25-2024 End: 08-25-2024 Bamboo flowsheet Jack Nava MD Work Phone: [facility] Start: 08-25-2024 End: 08-25-2024 Office outpatient visit 25 minutes Jack Nava MD Work Phone: [facility] Comment on above: Acute kidney injury (CMS/HCC) (Primary Dx); Stage 3a chronic kidney disease (CKD) (CMS/HCC); Serum cholesterol elevated (CMS/HCC) Start: 08-25-2024 End: 08-25-2024 ambulatory JACK NAVA Not Available Start: 08-19-2024 End: 08-19-2024 Clinisync Result Encounter Jack Nava MD Work Phone: [facility] Start: 08-19-2024 End: 08-19-2024 Clinisync Result Encounter Jack Nava MD Work Phone: [facility] Unsolic[facility] Start: 08-14-2024 End: 08-14-2024 Bamboo flowsheet Jack Nava MD Work Phone: [facility] Start: 08-14-2024 End: 08-14-2024 Bamboo flowsheet Jack Nava MD Work Phone: [facility] Start: 08-14-2024 End: 08-19-2024 Telephone encounter Jack Nava MD Work Phone: [facility] Comment on above: Results Start: 08-14-2024 End: 08-14-2024 Office outpatient visit [...] [facility] Start: 04-16-2024 End: 04-16-2024 Bamboo flowsheet Jack [...] [facility] Start: 03-13-2024 End: 03-13-2024 Bamboo flowsheet Jack [...] 02-26-2024 ambulatory JACK NAVA Not Available Start: 11-02-2023 End: 11-02-2023 Office outpatient new 45 minutes Lin Archer PA-C Work Phone: [facility] Comment on above: Family history of pa ncreatic cancer (Primary Dx) Start: 11-02-2023 End: 11-02-2023 ambulatory LIN Cooper ARCHER [facility] Start: 11-02-2022 Encounter for genera l adult medical examination without abnormal findings DR JACK NAVA . [facility] Start: 10-12-2022 End: 10-13-[address] JACK NAVA . Facility: Start: 10-12-2022 End: 10-13-2022 Encounter for general adult medical examination without abnormal findings DR JACK NAVA . Facility:[facility] Start: 02-14-2022 End: 02-15-[address] JACK NAVA . Facility: Procedures Date Procedure Procedure Detail Performing Clinician Start: 11-20-2024 ALL BASIC METABOLIC PANEL Jack self MD Work Phone: Start: 11-20-2024 ALL LIPID PROFILE (FASTING) Jack arita MD Work Phone: Start: 08-29-2024 Esophagogastroduodenoscopy us scope w/adj strxrs Lin Archer PA-C Work Phone: Start: 08-19-2024 ALL LIPID PROFILE (FASTING) Jack arita MD Work Phone: Start: 08-19-2024 [facility] CMP (CMP) (FOR REMOTE [facility] USE) José Antonio Nava MD Work Phone: Start: 03-13-2024 Urnls dip stick/tablet rgnt non-auto w/o micrscp Jack Nava MD Work Phone: Start: 11-23-2023 Mammography Jack Nava MD Work Phone: Start: 02-14-2022 Mammography Lin Archer PA-C Work Phone: Plan of Treatment Date Care Activity Detail Author Start: 2031 RSV High Risk: (Elde rly (60+) or Population) (1 - 1-dose 75+ series) RSV High Risk: (Elderly (60+) or Population) (1 - 1-dose 75+ series) [facility] Start: 10-26-2025 Screening for malign ant neoplasm of colon [facility] Start: 12-29-2024 End: 12-29-2024 Patient encounter procedure 12/29/2024 9:30 AM EDT Office Visit [facility] [address] [place] [address] Jack Nava MD [address] [facility] [address] [place] [address] Generalized anxiety disorder (CMS/HCC); Irritable bowel syndrome with both constipation and diarrhea; Gastroesophageal reflux disease without esophagitis; Perimenopausal disorder; Acquired absence of both ovaries; Acquired absence of both cervix and uterus [facility] Comment on above: Generalized anxiety disorder (CMS/HCC); Irritable bowel syndrome with both constipation and diarrhea; Gastroesophageal reflux disease without esophagitis; Perimenopausal disorder; Acquired absence of both ovaries; Acquired absence of both cervix and uterus Start: 12-23-2024 Medicare Annual Wellness (AWV) Medicare Annual Wellness (AWV) [facility] Start: 11-22-2024 Screening for malign ant neoplasm of breast Mammogram [facility] Start: 10-23-2024 End: 08-25-2025 Basic metabolic 1998 panel - Serum or Plasma Basic metabolic panel Lab Routine Acute kidney injury ([facility]/HCC) Stage 3a chronic kidney disease (CKD) ([facility]/HCC) Expected: 10/23/2024, Expires: 08/25/2025 [facility] Work Phone: Comment on above: Expected: 10/23/2024 , Expires: 08/25/2025 Start: 10-23-2024 End: 08-25-2025 Lipid 1996 panel - Serum or Plasma Lipid panel Lab Routine Serum cholesterol elevated (CMS/HCC) Expected: 10/23/2024, Expires: 08/25/2025 [facility] Comment on above: Expected: 10/23/2024 , Expires: 08/25/2025 Start: 08-25-2024 End: 08-25-2024 Patient encounter procedure [facility] Comment on above: Stage 3a chronic kid aparna disease (CKD) ([facility]); Serum cholesterol elevated ([facility]/HCC) Start: 08-19-2024 End: 08-19-2025 Urate [Mass/volume] in Serum or Plasma Uric acid Lab Routine Stage 3a chronic kidney disease (CKD) ([facility]/HCC) Expected: 08/19/2024 (Approximate), Expires: 08/19/2025 [facility] Work Phone: Comment on above: Expected: 08/19/2024 (Approximate), Expires: 08/19/2025 Start: 08-14-2024 End: 08-14-2025 Comprehensive metabolic 2000 panel - Serum or Plasma Comprehensive metabolic panel Lab Routine Screening for diabetes mellitus Expected: 08/14/2024 (Approximate), Expires: 08/14/2025 [facility] Work Phone: Comment on above: Expected: 08/14/2024 (Approximate), Expires: 08/14/2025 Start: 08-14-2024 End: 08-14-2025 Lipid 1996 panel - Serum or Plasma Lipid panel Lab Routine Screening, lipid Expected: 08/14/2024 (Approximate), Expires: 08/14/2025 [facility] Comment on above: Expected: 08/14/2024 (Approximate), Expires: 08/14/2025 Start: 08-14-2024 End: 08-14-2024 Patient encounter procedure 08/14/2024 10:30 AM EST Office Visit [facility] [address] [place] [address] Jack Nava MD [address] [place] [address] Generalized anxiety disorder (CMS/HCC); Gastroesophageal reflux disease without esophagitis; Irritable bowel syndrome with both constipation and diarrhea [facility] Comment on above: Generalized anxiety disorder (CMS/HCC); Gastroesophageal reflux disease without esophagitis; Irritable bowel syndrome with both constipation and diarrhea Start: 04-16-2024 End: 04-16-2024 Patient encounter procedure 04/16/2024 3:00 PM EDT Office Visit [facility] [address] [facility] [address] [place] [address] Jack Nava MD [address] [place] [address] (Fax) Arrived [facility] Comment on above: Arrived Start: 03-23-2024 COVID-19 Vaccine ( season) COVID-19 Vaccine ( season) [facility] Start: 03-23-2024 Influenza vaccination [facility] Start: 03-13-2024 End: 03-13-2024 Patient encounter procedure 03/13/2024 3:00 PM EDT Office Visit [facility] [address] [facility] [address] [place] [address] Jack Nava MD [address] [place] [address] (Fax) Arrived [facility] Comment on above: Arrived Start: 03-23-2023 COVID-19 Vaccine ( season) COVID-19 Vaccine ( season) [facility] Start: 02-14-2023 Screening for malign ant neoplasm of breast Mammogram [facility] Start: 2021 Pneumococcal Vaccine : 65+ Years (1 of 1 - PCV) Pneumococcal Vaccine: 65+ Years (1 of 1 - PCV) [facility] Start: 2006 Pneumococcal vaccination Pneumococcal Vaccine (1 of 1 - PCV) [facility] Start: 2006 Zoster Vaccines (1 o f 2) Zoster Vaccines (1 of 2) [facility] Start: 1978 DTaP/Tdap/Td Vaccine s (1 - Tdap) DTaP/Tdap/Td Vaccines (1 - Tdap) [facility] Start: 1974 Hepatitis C screening Hepatitis C Sc reening [facility] Start: 1955 Lipid panel Lipid Panel [facility] Start: 1955 Medicare Annual Wellness Visit Medicare Annual Wellness Visit (AWV) [facility] Start: 1955 Screening for malign ant neoplasm of colon [facility] Start: 1955 Screening for osteoporosis Bone Density Scan [facility] Payers Date Payer Category Payer Medicare supplementa l policy (as second payer) [employer] [id number] 2023 Private Health Insurance [employer] [id number] 2023 Unknown [id number] 2023 Unknown [id number] 2023 Medicare [id number] 2023 Medicare [id number] 1959 Unknown [id number] 1959 Unknown [id number] 1955 Unknown [id number] 1955 Unknown [id number] 1955 Unknown [id number] .[id number] 1955 Unknown [id number] .[id number] 1955 Unknown [id number] .1259 1955 Unknown [id number] .1259 1955 Unknown [id number] .1259 1955 Unknown [id number] .1259 1955 Unknown [id number] .1259 1955 Unknown [id number] .[id number] Social History Date Type Detail Facility [facility] Work Phone: Start: 1955 Sex assigned at Female [facility] Start: 10-30-2023 Gender identity Identifies as female gender (finding) [facility] Work Phone: Start: 10-30-2023 Sexual orientation Heterosexual (finding) [facility] Work Phone: Start: 10-23-2023 End: 08-29-2024 Exposure to SARS-CoV-2 (event) Not sure [facility] Start: 02-26-2024 End: 08-29-2024 Tobacco smoking status NHIS Ex-smoker [facility] End: 05-18-1997 History of tobacco use Current smoker [facility] End: 05-18-1997 History of tobacco use Cigarette Smoker [facility] Start: 02-26-2024 Tobacco use and exposure Former smokeless tobacco user [facility] Start: 04-16-2024 End: 12-29-2024 Alcoholic beverage intake Current drinker of alcohol [...] - these days [OSQ] Only a little [facility] (I/We) worried janna er (my/our) food would run out before (I/we) got money to buy more. Never true [facility] Start: 07-30-2023 Tobacco Comment Last smoked : > 10 years [facility] Start: 07-30-2023 Alcohol Comment Caffeine intake : 1-2 cups per day [facility] Start: 1955 Sex assigned at Not on file [facility] How often to you hav e a drink containing alcohol? 2-3 time sa week [facility] Start: 08-29-2024 Tobacco use and exposure Smokeless tobacco non-user [facility] Work Phone: Start: 08-29-2024 Alcohol Comment Occasional [facility] Work Phone: Clinical Notes 11-02-2023 to 01-07-2025 Telephone Encounter - Jakc Nava MD - 01/07/2025 10:37 AM EDTTelephone Encounter - Jack Nava MD - 01/07/2025 10:37 AM EDTTelephone Encounter - Minda Bravo MA - 01/07/2025 10:31 AM EDT Note Date & Type Note Facility 01-07-2025 Telephone encounter Note Prescription sent [facility] 01-07-2025 Miscellaneous Notes Prescription sent Pt called and stated her and EH had a discussion and that she has decided she will try the low dose statin he offered. Please send to [facility] documented in this encounter [facility] 01-07-2025 Telephone encounter Note Pt called and stated her and EH had a discussion and that she has decided she will try the low dose statin he offered. Please send to [facility] 12-29-2024 History of Presen t illness Narrative Images from the original note were not included. Patient ID: Lili Vera is a 69 y.o. female who presents for: Anxiety Patient [...] of the following medication side effects: none. Sleep has gotten worse but is having health issues. Female HRT: Symptoms include: none Severity: mild Feels better since starting HRT treatment: Yes, cut in half after last OV like EH recommended Other Symptoms: none Date of Last Mammogram: 11/2023 GERD Paitent complains of heartburn. This has been associated with no other symptoms. He/She denies abdominal bloating, belching and eructation, difficulty swallowing, dysphagia, and hoarseness. Symptoms have been present for several years. He/She denies dysphagia. He/She has not lost weight. He/She denies melena, hematochezia, hematemesis, and coffee ground emesis. Refill: Pt has been on colestipol for several years for her diarrhea related to her IBS and has been happy with the medication. Pt has not side effects from medications and needs a refill today. Review of Systems Constitutional: Negative for appetite change and fatigue. Psychiatric/Behavioral: Positive for sleep disturbance. Negative for agitation, behavioral problems and suicidal ideas. The patient is nervous/anxious. Objective The patient is pleasant and in no acute distress The patient has good eye contact and clear speech 11/13/2023 2:00 PM 12/24/2023 10:17 AM 02/26/2024 8:53 AM 03/13/2024 2:46 PM 04/16/2024 2:46 PM 08/14/2024 10:19 AM 08/25/2024 9:21 AM Vitals BMI 21.61 kg/m2 22.71 kg/m2 22.71 kg/m2 22.71 kg/m2 22.71 kg/m2 22.71 kg/m2 22.71 kg/m2 BSA (m2) 1.72 m2 1.76 m2 1.76 m2 1.76 m2 1.76 m2 1.76 m2 1.76 m2 Heart Rate 69 87 SpO2 99 % 94 % Height (in) 5' 7 5' 7 5' 7 5' 7 5' 7 5' 7 5' 7 Weight (lb) 138 145 145 145 145 145 145 Visit Report Report Report Report Report Report Report Report Laboratories dated November 20, 2024 reviewed Allergies Allergen Reactions Acetaminophen Other Reaction(s): [...] mg) by mouth Daily 90 tablet 1 mometasone (Elocon) 0.1 % ointment Apply topically Daily As needed for inflamed lips 15 g 2 omeprazole (PriLOSEC) [address] capsule Take 1 capsule (20 mg) by mouth in the morning. Take before meals. Do not crush or chew.. 90 capsule 3 No current facility-administered medications on file prior to visit. 1. Generalized anxiety disorder (CMS/HCC) (Primary) Chronic problem, relatively stable for her overall. She has an adequate amount of Xanax left. 2. Irritable bowel syndrome with both constipation and diarrhea Chronic problem that is stable for her but still somewhat symptomatic. The colestipol also cross treats her lipids. We did have a specific discussion about her lipids as they are still not to goal. She wants to think about this she is afraid of trying the statin medication. We discussed if she felt symptomatic from that, then it could be stopped and that any symptoms she would develop would almost certainly be reversible. - colestipol (Colestid) 1 g tablet; Take 1-2 tablets (1-2 g) by mouth 3 (three) times a day as needed (diarrhea) Dispense: 100 tablet; Refill: 1 3. Gastroesophageal reflux disease without esophagitis Chronic problem, stable, no significant clinical symptoms. - omeprazole (PriLOSEC) [address] capsule; Take 1 capsule (20 mg) by mouth in the morning. Take before meals. Do not crush or chew. Dispense: 180 capsule; Refill: 0 4. Perimenopausal disorder Chronic problem, stable, no perimenopausal or menopausal type Symptoms. - estradiol (Estrace) 1 MG tablet; Take 0.5 tablets (0.5 mg) by mouth Daily Dispense: 90 tablet; Refill: 0 5. Acquired absence of both ovaries As above 6. Acquired absence of both cervix and uterus Exclusionary diagnosis for the HEDIS measures for cervical cancer screening 7. Stage 2 chronic kidney disease New , Chronic problem, unstable, progressing, defining the end organ damage of the nephropathy. I stressed the importance of keeping blood pressure and blood sugar to goal, staying well hydrated, and aerobic exercises as tolerated. Continue to monitor longitudinally. documented in this encounter [facility] 08-29-2024 Hospital Discharg e instructions Wyatt Crowder MD - 08/29/2024 8:44 AM EST Patient Instructions after an Endoscopy Post-procedure recommendations: - The patient will be observed post-procedure, until all discharge criteria are met. - Discharge the patient to home with family member/escort. - Resume previous diet. - Continue present medications. - Observe patient's clinical course following today's procedure with therapeutic intervention. - Watch for bleeding, perforation, and infection. - Follow-up with referring physician. - Return to primary care physician. - The patient has a contact number available for emergencies. The signs and symptoms of potential delayed complications were discussed with the patient. Return to normal activities tomorrow. Written discharge instructions were provided to the patient. The anesthetics, sedatives or narcotics which were given to you today will be acting in your body for the next 24 hours, so you might feel a little sleepy or groggy. This feeling should slowly wear off. Carefully read and follow the instructions. You received sedation today: - Do not drive or operate any machinery or power tools of any kind. - No alcoholic beverages today, not even beer or wine. - Do not make any important decisions or sign any legal documents. - No over the counter medications that contain alcohol or that may cause drowsiness. - Do not make any important decisions or sign any legal documents. While it is common to experience mild to moderate abdominal distention, gas, or belching after your procedure, if any of these symptoms occur following discharge from the GI Lab or within one week of having your procedure, call the [facility] to be advised whether a visit to your nearest Urgent Care or Emergency Department is indicated. Take this paper with you if you go: - If you develop an allergic reaction to the medications that were given during your procedure such as difficulty breathing, rash, hives, severe nausea, vomiting or lightheadedness. - If you experience chest pain, shortness of breath, severe abdominal pain, fevers and chills. - If you develop signs and symptoms of bleeding such as blood in your spit, if your stools turn black, tarry, or bloody. - If you have not urinated within 8 hours following your procedure. - If your IV site becomes painful, red, inflamed, or looks infected. If you experience any problems or have any questions following discharge from the GI Lab, please call: [phone] documented in this encounter [facility] Work Phone: 08-29-2024 History and physical note Procedure H&P Patient Profile-Procedures Name Lili Vera Date of 1955 Address [address] [place], [place] [id number] [address] [address] Primary Secondary Phone Number PCP Procedure(s): Procedures: EUS Primary contact name and number Extended Emergency Contact Information Primary Emergency Contact: Michael Vera Address: [address] [place] [address] of [facility] Mobile Relation: Spouse General Health Weight Vitals: 08/29/24 0731 Weight: 61.7 kg (136 lb) BMI Body mass index is 21.95 kg/m . Allergies No Known Allergies Past Medical History Past Medical History: Diagnosis Date IBS (irritable bowel syndrome) Provider assessment Diagnosis: evaluation of pancreatic lesion. Fx of panc ca. Medication Reviewed - yes Prior to Admission medications Medication Sig Start Date End Date Taking? Authorizing Provider ALPRAZolam (Xanax) 0.25 mg tablet Take 1 tablet (0.25 mg) by mouth 3 times a day as needed. 02/26/24 Yes Historical Provider, MD colestipol (Colestid) 1 gram tablet Take 1-2 tablets (1-2 g) by mouth 3 times a day as needed. 08/14/24 11/12/24 Yes Historical Provider, estradiol (Estrace) 1 mg tablet Take 1 tablet (1 mg) by mouth once daily. 08/14/24 02/10/25 Yes Historical Provider, omeprazole (PriLOSEC) [address] capsule Take 1 capsule (20 mg) by mouth. 08/14/24 08/14/25 Yes Historical Provider, Physical Exam Vitals: 08/29/24 0731 BP: 134/63 Pulse: 64 Resp: 16 Temp: 36.3 C (97.3 F) SpO2: 97% General: A&Ox3, NAD. HEENT: AT/NC. CV: RRR. No murmur. Resp: CTA bilaterally. No wheezing, rhonchi or rales. GI: Soft, NT/ND. BSx4. Extrem: No edema. Pulses intact. Neuro: No focal deficits. Psych: Normal mood and affect. Procedure Plan - pre-procedural (re)assesment completed by physician: discharge/transfer patient when discharge criteria met Wyatt Crowder MD 08/29/2024 7:32 AM [facility] Work Phone: 08-29-2024 History and physical note Procedure H&P Patient Profile-Procedures Name Lili Vera Date of 1955 Address [address] [place], [place] [id number] [address] [address] Primary Secondary Phone Number PCP Procedure(s): Procedures: EUS Primary contact name and number Extended Emergency Contact Information Primary Emergency Contact: Michael Vera Address: [address] [place], [place] [id number] [facility] [place] Mobile Relation: Spouse General Health Weight Vitals: 08/29/24 0731 Weight: 61.7 kg (136 lb) BMI Body mass index is 21.95 kg/m . Allergies No Known Allergies Past Medical History Past Medical History: Diagnosis Date IBS (irritable bowel syndrome) Provider assessment Diagnosis: evaluation of pancreatic lesion. Fx of panc ca. Medication Reviewed - yes Prior to Admission medications Medication Sig Start Date End Date Taking? Authorizing Provider ALPRAZolam (Xanax) 0.25 mg tablet Take 1 tablet (0.25 mg) by mouth 3 times a day as needed. 02/26/24 Yes Historical Provider, colestipol (Colestid) 1 gram tablet Take 1-2 tablets (1-2 g) by mouth 3 times a day as needed. 08/14/24 11/12/24 Yes Historical Provider, estradiol (Estrace) 1 mg tablet Take 1 tablet (1 mg) by mouth once daily. 08/14/24 02/10/25 Yes Historical Provider, omeprazole (PriLOSEC) [address] capsule Take 1 capsule (20 mg) by mouth. 08/14/24 08/14/25 Yes Historical Provider, Physical Exam Vitals: 08/29/24 0731 BP: 134/63 Pulse: 64 Resp: 16 Temp: 36.3 C (97.3 F) SpO2: 97% General: A&Ox3, NAD. HEENT: AT/NC. CV: RRR. No murmur. Resp: CTA bilaterally. No wheezing, rhonchi or rales. GI: Soft, NT/ND. BSx4. Extrem: No edema. Pulses intact. Neuro: No focal deficits. Psych: Normal mood and affect. Procedure Plan - pre-procedural (re)assesment completed by physician: discharge/transfer patient when discharge criteria met Wyatt Crowder MD 08/29/2024 7:32 AM documented in this encounter [facility] Work Phone: 08-25-2024 History of Presen t illness Narrative Images from the original note were not included. Patient ID: Lili Vera is a 68 y.o. female who presents for: Review Results: Patient is here in the office today to review recent labs or diagnostic imaging with Dr Layo Nava per his request. Based on the results they will also review treatment options. Please see labs scanned. Patients specifically states that prior to the lab test she went through some sort of cleansing protocol and a 40 hour fast. She is convinced that this is caused her abnormal labs. Review of Systems Constitutional: Negative for chills and fever. Respiratory: Negative for cough, shortness of breath and wheezing. Cardiovascular: Negative for chest pain and palpitations. Gastrointestinal: Negative for abdominal pain. Genitourinary: Negative for frequency and urgency. Objective The patient is pleasant and in no acute distress The patient has good eye contact and clear speech Visit Vitals Ht 5' 7 Wt 145 lb BMI 22.71 kg/m OB Status Postmenopausal Smoking Status Former BSA 1.76 m Labs reviewed. Allergies Allergen Reactions Acetaminophen Other Reaction(s): Abdominal [...] mg) by mouth Daily 90 tablet 1 mometasone (Elocon) 0.1 % ointment Apply topically Daily As needed for inflamed lips 15 g 2 omeprazole (PriLOSEC) [address] capsule Take 1 capsule (20 mg) by mouth in the morning. Take before meals. Do not crush or chew.. 90 capsule 3 [DISCONTINUED] mometasone (Elocon) 0.1 % ointment Apply topically Daily As needed for inflamed lips 15 g 2 No current facility-administered medications on file prior to visit. 1. Acute kidney injury (CMS/HCC) (Primary) I discussed with her that if indeed the above cleansing in fast cause the lower kidney function than that would be considered acute injury. We did review the basics of the healthy kidney. We have mutually agreed that we are going to recheck at 3 months to see if there is resolution. - Basic metabolic panel; Future - Basic metabolic panel 2. Stage 3a chronic kidney disease (CKD) (CMS/HCC) New, chronic problem. I did review the pathology with her. We did discuss the importance of staying well hydrated and she already exercises regularly. - Basic metabolic panel; Future - Basic metabolic panel 3. Serum cholesterol elevated (CMS/HCC) This also had some abnormalities to it which she attributes to the above. Mutually agreed that we will check this in 3 months. - Lipid panel; Future - Lipid panel documented in this encounter [facility] 08-25-2024 Evaluation note Diagnosis Acute kidney injury (CMS/HCC)- Primary Stage 3a chronic kidney disease (CKD) (CMS/HCC) Serum cholesterol elevated (CMS/HCC) documented in this encounter [facility] [id number] Telephone encounter Note* Telephone Encounter - Jack Nava MD - 08/19/2024 12:50 PM EST [id number] Miscellaneous Notes* Telephone Encounter - Jack Nava MD - 08/19/2024 12:50 PM EST Prescription sent * Telephone Encounter - Almaz Freedman - 08/19/2024 10:52 AM EST Lili called back, concerning her lip ointment. She stated when she looked it up for the [facility] pharmacy, it showed they carried it so she had us send it there. They notified her the ointment was out of stock and did not have a restock date. Lili is asking [facility]? If you could pleaseresend it to [facility]. * Telephone Encounter - Minda ArthurshermanRONALD - 08/19/2024 10:43 AM EST Patient was notified and verbalized understanding. He/She knows to contact office with any further questions. She stated she wants to wrap her head around all this and most likely make an OV next week but her is having a heart ablation morning in [place] and right now she needs to focus onthat and then come in and go over tx options with EH. TBHarika added on the uric acid, lab faxed. * Telephone Encounter - Jack Nava MD - 08/19/2024 10:16 AM EST Her labs are now back and reviewed. She has had decreasing her kidney function. She is now in stage IIIA chronic kidney disease. Since this is a new diagnosis for her she should be getting a uric acid level also. The other problem is her HDL cholesterol is elevated. Up to 60 is considered good anything greater than 80 is considered increase cardiovascular risk in many times the HDL is dysfunctional as far as protection. The recommendation for her would be statin medication. She may want to have an office visit to review all of the things after we get the uric acid level back. * Telephone Encounter - Jack Nava MD - 08/19/2024 8:49 AM EST I reviewed her previous lipid profile. I believe the screening is only being paid every other year by Medicare now. Her last screening had an elevated total cholesterol level. We will use that diagnosis and it should get covered. * Telephone Encounter - Minda Bravo MA - 08/19/2024 8:21 AM EST YON called and the code you attached to her lipid panel failed. I don't know any others that you could use, please advise * Telephone Encounter - Almaz Freedman - 08/14/2024 11:22 AM EST Lili called, She asked if dr. Nava could go ahead and sent the Elcon Ointment they talked about to [facility]. She can get it a lot cheaper there . documented in this encounterMin[facility] [id number] Telephone encounter Note* Telephone Encounter - Almaz Freedman - 08/19/2024 10:52 AM EST Lili called back, concerning her lip ointment. She stated when she looked it up for the [facility] pharmacy, it showed they carried it so she had us send it there. They notified her the ointment was out of stock and did not have a restock date. Lili is asking if she can try [facility]? If you could pleaseresend it to [facility]. [facility] [id number] Telephone encounter Note* Telephone Encounter - Minda Bravo MA - 08/19/2024 10:43 AM EST Patient was notified and verbalized understanding. He/She knows to contact office with any further questions. She stated she wants to wrap her head around all this and most likely make an OV next week but her is having a heart ablation morning in [place] and right now she needs to focus onthat and then come in and go over tx options with . TBH added on the uric acid, lab faxed. [facility] [id number] Telephone encounter Note* Telephone Encounter - Jack Nava MD - 08/19/2024 10:16 AM EST Her labs are now back and reviewed. She has had decreasing her kidney function. She is now in stage IIIA chronic kidney disease. Since this is a new diagnosis for her she should be getting a uric acid level also. The other problem is her HDL cholesterol is elevated. Up to 60 is considered good anything greater than 80 is considered increase cardiovascular risk in many times the HDL is dysfunctional as far as protection. The recommendation for her would be statin medication. She may want to have an office visit to review all of the things after we get the uric acid level back. [employer] [facility] [id number] Telephone encounter Note* Telephone Encounter - Jack Nava MD - 08/19/2024 8:49 AM EST I reviewed her previous lipid profile. I believe the screening is only being paid every other year by Medicare now. Her last screening had an elevated total cholesterol level. We will use that diagnosis and it should get covered. [employer] [facility] [id number] Telephone encounter Note* Telephone Encounter - Minda Bravo MA - 08/19/2024 8:21 AM EST [facility] called and the code you attached to her lipid panel failed. I don't know any others that you could use, please advise [employer] [facility] [id number] Telephone encounter Note* Telephone Encounter - Almaz Freedman - 08/14/2024 11:22 AM EST Lili called, She asked if dr. Nava could go ahead and sent the Elcon Ointment they talked about to [facility]. She can get it a lot cheaper there . [employer] [facility] [id number] History of Present illness Narrative* Jack Nava MD - 08/14/2024 10:30 AM EST Images from the original note were not [...] are: none. Previous treatment includes medication Xanax. He/Shecomplains of the following medication side effects: none. Female HRT: Symptoms include: none Severity: mild Feels better since starting HRT treatment: Yes Other Symptoms: none Date of Last Mammogram: 11/2023 MAICO Mon complains of heartburn. This has been associated [...] (1-2 g) by mouth 3 (three) times aday as needed (diarrhea) 100 tablet 1 [DISCONTINUED] [...] easier on the liver due to the avoidanceof 1st pass effect. After discussion we will continue the oral estrogen. - estradiol (Estrace) 1 MG tablet; Take 1 tablet (1 mg) by mouth Daily Dispense: 90 tablet; Refill:1 5. Screening, lipid - Lipid panel; Future - Lipid panel 6. Screening for diabetes mellitus - Comprehensive metabolic panel; Future - Comprehensive metabolic panel 7. Perioral dermatitis Chronic problem that needs intermittent treatment. I gave her the name of the another steroid creamand asked her to prescott it out and [...] does have a pancreatic specialist now in [place]. She is scheduled for Endoscopic ultrasound of the pancreas. documented in this encounterMin[facility] [id number] History of Present illness Narrative* Jack Nava MD - 04/16/2024 3:00 PM EDT Images from the original note were not [...] but decided against it. She did not haveany palpitations, diaphoresis, or near syncopal events associated with this. It did not come on with specific activity. It resolved spontaneously. There was no specific radiation up into her neck or shoulder region. We did discuss the possibility of pursuing with further stress test. However this patient exercisesvery actively in his not had any chest [...] had an esophageal spasm. documented in this encounterMineral Area [facility] Medical [id number] History of Present illness Narrative* Jack Nava MD - 03/13/2024 3:00 PM EDT Images from the original note were not included. Patient ID: Lili Vera is a 68 y.o. female who presents for: Urinary Tract Infection Patient complains of flank pain . He/She has had symptoms for a few days. Patient also complains ofback pain. Patient denies fever. 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 In prescribing [...] by mouth in the morning and 1 tablet(5 mg) in the evening and 1 tablet [...] 3. BMI 22.0-22.9, adult documented in this encounterMineral Area [facility] Medical [id number] History of Present illness Narrative* Jack Nava MD - 02/26/2024 9:00 AM EDT Images from the original note were not [...] are: none. Previous treatment includes medication Xanax. He/Shecomplains of the following medication side effects: none. GERD Paitent complains of heartburn. This has been associated with no other symptoms. He/She denies abdominal bloating, belching, belching and eructation, and difficulty swallowing. Symptoms have been present for several years . He/She denies dysphagia. He/She has not lost weight. He/She denies melena, h ematochezia, hematemesis, and coffee ground emesis. Symptoms include: [...] problems if not taken the correct way, ortaken with another drug or food item that [...] in it is better served with transdermal patches.We have had this discussion before and she prefers to continue the pill form. - estradiol (Estrace) 1 MG tablet; Take 1 tablet (1 mg) by mouth Daily Dispense: 90 tablet; Refill:1 7. BMI 22.0-22.9, adult documented in this encounterMineral Area [facility] Medical [id number] History of Present illness Narrative* Lin Archer PA-C - 11/02/2023 2:00 PM EDT A virtual visit (audio and visual connection) between the patient (at the originating site) and theprovider (at the distant site) was utilized to [...] jaundice. She is not diabetic. She considers herselfto be very healthy. Medical history: Anxiety. Surgical history: Total hysterectomy, cholecystectomy, umbilical hernia repair. Family history: Her father of pancreatic cancer at age 59; he lived 6 weeks after his diagnosis; did not tolerate chemotherapy. She had 8 siblings, 4 of which are still living. She has had 3 siblings from pancreatic cancer: brother (Michael) in August, sister (Fabiana Santillan) was diagnosed atage 71 and in 2022, sister (Teresa) was diagnosed at age 67, underwent a Whipple procedure and in 2016. Mother was diagnosed with breast cancer at age 65 but lived to the age of 92. Oldest brother from AIDS at age 51 in 1994. Social history: Former smoker, quit 25 years ago. Occasional alcohol use. No illicits. Lives in [place]. x 43 years. Email: . Objective There were no vitals taken for [...] options (MRI/MRCP, EUS, etc.). She does not believeshe will ever be able to tolerate a MRI/MRCP due to significant claustrophobia. She also (understandably) expresses significant anxiety related to her family history and comments that she would feel more comfortable with a shorter surveillance interval (as compared to annually).I will let her know if I hear of any new surveillance tests developed or offered in the future. I did briefly discuss the Galleri test with her though likely cost-prohibitive. Finally, I did request her CT images for review. Lin Archer PA-C [facility]: Evaluation note* Diagnosis Family history of pancreatic cancer- Primary Family history of malignant neoplasm of gastrointestinal tract documented in this encounter [facility] Work Phone: Evaluation note* Diagnosis Chest pain, [...] pancreatic cancer [facility] Diagnosis Serum cholesterol elevated (CMS/HCC)- Primary Stage 3a chronic kidney disease (CKD) (CMS/HCC) Perioral dermatitis Rosacea Stage 3a chronic kidney disease (CKD) (CMS/HCC) Serum cholesterol elevated (CMS/HCC) [facility] Diagnosis At high risk for pancreatic cancer Family history of malignant neoplasm of pancreas documented in this encounter [facility] Work Phone: Evaluation note* Diagnosis Generalized anxiety disorder (CMS/HCC)- Primary Generalized anxiety disorder Irritable bowel syndrome with both constipation and diarrhea Gastroesophageal reflux disease without esophagitis Esophageal reflux Perimenopausal disorder Unspecified menopausal and postmenopausal disorder 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 Stage 2 chronic kidney disease [facility] Diagnosis Elevated cholesterol- Primary Pure hypercholesterolemia documented [facility] this encounter [facility] Narrative* Endoscopy (Routine) - Authorized Specialty Diagnoses / Procedures Referred By Franco sprague Referred To Contact Gastroenterology Diagnoses At high risk for pancreatic cancer Family history of malignant neoplasm of pancreas Procedures Endoscopic Ultrasound (Upper) Lin Archer PA-C [address] Department of [place] [address] Phone: tel: fax: Referral ID Status Reason Start Date Expiration Date V isits Requested Visits Authorized [id number] Authorized 07/21/2024 07/21/2025 1 1 [facility] Work Phone: Summary Purpose Family History No Family History Records FoundNo Family History Records FoundNo Family History Records FoundNo Family History Records Found Advance Directives Documents on File Type Date Recorded 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 Advance Directives and Living Will 10/11/2021 2020-09-08 Power Of Fastener Technologist Additional Source Comments INFORMATION SOURCE (unrecogn ized section and content) DATE CREATED AUTHOR 11/03/2022 [facility] DATE CREATED AUTHOR AUTHOR'S ORGANIZ ATION 09/01/2024 [facility] DATE CREATED AUTHOR AUTHOR'S ORGANIZ ATION 09/01/2024 [facility] DATE CREATED AUTHOR AUTHOR'S ORGANIZ ATION 12/29/2024 [facility] EPIC Reason for Visit (unrecogniz ed section and content) Reason Comments Follow-up Reason Comments Med Refill Reason Comments GERD Anxiety Hormones Reason Comments UTI Reason Comments Anxiety Reason Onset Date Comments Results 08/14/2024 Reason Comments Results Reason Comments Anxiety hormones GERD Reason Onset Date Comments Care Coordination 01/07/2025 Care Teams (unrecognized sec tion and content) Tow Mate Relationship Specialty Start Date End Date Jack Nava MD [address] [facility] [address] (Fax) PCP - General Family Medicine 11/28/22 Tow Mate Relationship Specialty Start Date End Date Jack Nava MD [address] [place] [address] (Fax) PCP - General Family Medicine 11/28/22 Tow Mate Relationship Specialty Start Date End Date Jack Nava MD [address] [phone] (Fax) PCP - General Family Medicine 11/28/22 Tow Mate Relationship Specialty Start Date End Date Jack Nava MD [address] [place] [address] (Fax) PCP - General Family Medicine 11/28/22 Tow Mate Relationship Specialty Start Date End Date Jack Nava MD [address] [place] [address] (Fax) PCP - General Family Medicine 11/28/22 Tow Mate Relationship Specialty Start Date End Date Jack Nava MD [address] [place] [address] (Fax) PCP - General Family Medicine 11/28/22 Tow Mate Relationship Specialty Start Date End Date Jack Nava MD [address] [place] [address] (Fax) PCP - General Family Medicine 11/28/22 Tow Mate Relationship Specialty Start Date End Date Jack Nava MD [address] [place] [address] (Fax) PCP - General Family Medicine 11/28/22 Tow Mate Relationship Specialty Start Date End Date Jack Nava MD [address] [place] [address] (Fax) PCP - General Family Medicine 11/28/22 Tow Mate Relationship Specialty Start Date End Date Jack Nava MD [address] [place] [address] (Fax) PCP - General Family Medicine 11/28/22 Tow Mate Relationship Specialty Start Date End Date Jack Nava MD [address] [place] [address] (Fax) PCP - General Family Medicine 11/28/22 Jack Nava MD [address] [place] [address] (Fax) PCP - ACO Reach 08/29/24 Tow Mate Relationship Specialty Start Date End Date Jack Nava MD [address] [place] [address] (Fax) PCP - General Family Medicine 11/28/22 Jack Nava MD [address] [place] [address] (Fax) PCP - ACO Reach 08/29/24 Tow Mate Relationship Specialty Start Date End Date Jack Nava MD [address] [place] [address] PCP - General Family Medicine 11/28/22 Jack Nava MD [address] [facility] [place] [address] PCP - ACO Reach 08/29/24 Tow Mate Relationship Specialty Start Date End Date Jack Nava MD [address] [facility] [place] [address] PCP - General Family Medicine 11/28/22 Jack Nava MD [address] [facility] [place] [address] PCP - ACO Reach 08/29/24 FOR RECORDS PERTAINING TO PATIENTS WHO ARE [...] BE BASED ON THE PRIMARY CLINICAL RECORDS. [facility] [employer] [facility]. provides no warranty or guarantee of the accuracy or completeness of information in this document.
== END 2025-02-03 09:50 | disposition home or self-care (01) ==
LOC: MAMMO 09:49
PROVIDERS: PCP Family Medicine; Visit Provider Family Medicine
DX: Z12.31 Encounter for screening mammogram for malignant neoplasm of breast (principal); Z80.3 Family history of malignant neoplasm of breast; Z80.52 Family history of malignant neoplasm of bladder; Z80.8 Family history of malignant neoplasm of other organs or systems
CPT/HCPCS: 77063; 77067